=== PATIENT | male | born 1975 | race African-American/Black ===

== ENCOUNTER 2016-05-15 01:07 | Emergency (ER) | payer SELFPAY ==
[~2016-05-15] VITALS: Ht 180.3 cm; Wt 113.5 kg
[~2016-05-15 01:07] MED LIST: BACL10TA PO; DICL75 PO
[2016-05-15 01:10] VITALS: BP 126/79; PULSE 78; RESP 16; TEMP 98; O2SAT 98
[2016-05-15 01:34] VITALS: BP 130/79; PULSE 83; RESP 16; O2SAT 97
[2016-05-15] MEDS ORDERED: NAPR500 PO (02:19)
[2016-05-15] MEDS ORDERED: ZOFR4TAB3 SL (02:19)
[2016-05-15] MEDS ORDERED: CODE1SUS PO (02:19)
--- NOTE | 2016-05-15 02:19 | PD ---
HPI Chief Complaint: Cold / Flu Symptoms Time Seen by Provider: 02:08 Travel History International Travel<30 days: No Contact w/Intl Traveler<30days: No Traveled to known affect area: No History of Present Illness HPI 40-year-old male presents emergency department complaining of cough cold symptoms for the past 2 weeks. He states he hasn't felt well. He said myalgias. Chills but no definite fever. Today developed nausea vomiting and some diarrhea. He wasn't getting any better so he came to the emergency department. History Past Medical History Medical History: Denies Significant Hx Past Surgical History Surgical History: No Previous Surgery Social History Alcohol Use: No Tobacco Use: No Allergies-Medications (Allergen,Severity, Reaction): Coded Allergies: No Known Allergies (Unverified , 05/15/16) Reported Meds & Prescriptions Reported Meds & Active Scripts Active No Active Prescriptions or Reported Medications Review of Systems Except as stated in HPI: all other systems reviewed are Neg Physical Exam Narrative GENERAL: Well-appearing 40 year-old woman, no acute distress. SKIN: Warm and dry. NECK: Trachea midline. No JVD. CARDIOVASCULAR: Regular rate and rhythm. No murmur appreciated. RESPIRATORY: No accessory muscle use. Clear to auscultation. Breath sounds equal bilaterally. GASTROINTESTINAL: Abdomen soft, non-tender, nondistended. Hepatic and splenic margins not palpable. MUSCULOSKELETAL: No obvious deformities. No edema. NEUROLOGICAL: Awake and alert. No obvious cranial nerve deficits. Motor grossly within normal limits. Normal speech. Data Data Last Documented VS Vital Signs Date Time Temp Pulse Resp B/P Pulse Ox O2 Delivery O2 Flow Rate FiO2 05/15/16 01:34 83 16 130/79 97 Room Air 05/15/16 01:10 98.0 [facility] Medical Decision Making Medical Screen Exam Complete: Yes Emergency Medical Condition: Yes Differential Diagnosis URI, bronchitis, pharyngitis, sinusitis, other Narrative Course Medical decision making 40-year-old man presents emergent department about 2 weeks for the cough cold symptoms. Some nausea vomiting and diarrhea today. Looks well. Benign abdomen. Chief complaint is cough and sore throat. Is worried about his concert that he has coming up in one day. We'll recommend steroids, anti- inflammatories, Zofran as needed, cough suppressant as needed. Diagnosis Primary Impression: URI (upper respiratory infection) Additional Impression: Nausea vomiting and diarrhea Additional Instructions: Take Naprosyn as prescribed. Use Zofran if needed for nausea or vomiting. Take Robitussin-DM as needed for cough. Follow-up with your primary doctor in the next 2-4 days. Return to the emergency department for any new or worsening symptoms. Med/Other Pt SpecificInfo: Prescription(s) given Scripts Codeine-Chlorpheniramine ER Liq 12 HR (Tuzistra Xr Liq 12 HR)14.7-2.8 Mg/5 Ml Susp10 Ml PO Q12H #120 ML Ref 0 Prov:Omer Aiken MD 05/15/16 Naproxen (Naprosyn)500 Mg [id number] Mg PO BID PRN (PAIN SCALE 1 TO 10) #20 TAB Prov:Omer Aiken MD 05/15/16 Ondansetron Odt (Zofran Odt)4 Mg Tab4 Mg SL Q8HR PRN (Nausea/Vomiting) #15 TAB May substitute non-ODT form. Prov:Omer Aiken MD 05/15/16 Disposition: 01 DISCHARGE HOME Condition: Stable Omer Aiken MD May 15, 2016 02:19
[2016-05-15] MEDS ORDERED: DEXAMETHASONE SOD PHOS 4 MG/ML VIAL IM ONE (02:30)
[2016-05-15 02:35] VITALS: BP 136/63; TEMP 98.9
== END 2016-05-15 02:57 | disposition home or self-care (01) ==
LOC: NEPE 01:07
DX: J06.9 Acute upper respiratory infection, unspecified (principal)
CPT/HCPCS: 96372; 99283; J1100

== ENCOUNTER 2016-08-25 07:03 | Emergency (ER) | payer SELFPAY ==
[~2016-08-25] VITALS: Ht 180.3 cm; Wt 113.4 kg
[~2016-08-25 07:03] MED LIST changes: -BACL10TA PO; +CODE1SUS PO; -DICL75 PO; +NAPR500 PO; +ZOFR4TAB3 SL
[2016-08-25 07:04] VITALS: BP 121/85; PULSE 80; RESP 15; TEMP 97.9; O2SAT 100
--- NOTE | 2016-08-25 07:31 | PD ---
HPI Chief Complaint: Pain: Acute or Chronic Time Seen by Provider: 07:16 Travel History International Travel<30 days: No Contact w/Intl Traveler<30days: No Traveled to known affect area: No History of Present Illness HPI 41-year-old male complains of bilateral leg pain. Patient states that he woke up this morning the pain to the lower extremity especially posterior aspect of both thighs. Patient denies any injury. Patient states that he has mild aching low back area. Patient denies any fever chills. Patient states that he has muscle spasm posterior bilateral thigh area this morning. 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 Patient denies any chest pain or shortness of breath. Patient denies abdominal pain. Patient denies any history of DVT or PE. Patient denies any history of back injury. On a scale of 1-10 the pain is a 9. PFSH Past Medical History Medical History: Denies Significant Hx Diminished Hearing: No Immunizations Current: Yes Tetanus Vaccination: < 5 Years Influenza Vaccination: No ?: Not Past Surgical History Surgical History: No Previous Surgery Social History Alcohol Use: No Tobacco Use: No Substance Use: No Allergies-Medications (Allergen,Severity, Reaction): Coded Allergies: No Known Allergies (Unverified , 08/25/16) Reported Meds & Prescriptions Reported Meds & Active Scripts Active Robaxin (Methocarbamol) 750 Mg Tab 750 Mg PO QID Mobic (Meloxicam) 15 Mg Tab 15 Mg PO DAILY Review of Systems General / Constitutional: No: Fever Eyes: No: Visual changes HENT: No: Headaches Cardiovascular: No: Chest Pain or Discomfort Respiratory: No: Shortness of Breath Gastrointestinal: No: Abdominal Pain Genitourinary: No: Dysuria Musculoskeletal: Positive: Pain Skin: No Rash Neurologic: No: Weakness Psychiatric: No: Depression Endocrine: No: Polydipsia Hematologic/Lymphatic: No: Easy Bruising Physical Exam Narrative GENERAL: Well-nourished, well-developed patient. SKIN: Focused skin assessment warm/dry. HEAD: Normocephalic. EYES: No scleral icterus. No injection or drainage. NECK: Supple, trachea midline. No JVD or lymphadenopathy. CARDIOVASCULAR: Regular rate and rhythm without murmurs, gallops, or rubs. RESPIRATORY: Breath sounds equal bilaterally. No accessory muscle use. GASTROINTESTINAL: Abdomen soft, non-tender, nondistended. MUSCULOSKELETAL: No cyanosis, or edema. Patient has moderate tenderness on palpation posterior aspect of both thighs area. Full range of motion lower extremity. Sensory motor vascular distally intact. BACK: Mild tenderness on palpation lower lumbar area, without obvious deformity. No CVA tenderness. Neurologic exam: Normal. Data Data Last Documented VS Vital Signs Date Time Temp Pulse Resp B/P Pulse Ox O2 Delivery O2 Flow Rate FiO2 08/25/16 07:04 97.9 80 15 121/85 100 Orders Basic Metabolic Panel (Bmp) (08/25/16 07:20) Us Leg Venous Doppler Bilat (08/25/16 07:20) Labs Laboratory Tests Test 08/25/16 07:31 Sodium Level 144 MEQ/L Potassium Level 3.6 MEQ/L Chloride Level 109 MEQ/L Carbon Dioxide Level 27.5 MEQ/L Anion Gap 8 MEQ/L Blood Urea Nitrogen 18 MG/DL Creatinine 1.20 MG/DL Estimat Glomerular Filtration 80 ML/MIN Rate Random Glucose 149 MG/DL Calcium Level 8.7 MG/DL [facility] Medical Decision Making Medical Screen Exam Complete: Yes Emergency Medical Condition: Yes Interpretation(s) 8:16 AM. Doppler study lower extremity negative for acute pathology. Negative for DVT. BMP within normal limit. Random glucose 149. Differential Diagnosis Differential diagnosis including strain, muscular spasm, DVT, spinal abscess. Narrative Course 41-year-old male with mild low back pain, lower extremity pain. Diagnosis Primary Impression: Muscle spasm Patient Instructions: General Instructions Additional Instructions: Take medications as needed. Follow-up with personal physician and orthopedist if persistent problem. Return if worse. Off work today. Med/Other Pt SpecificInfo: Prescription(s) given Scripts Methocarbamol (Robaxin)750 Mg Iho863 Mg PO QID #40 TAB Prov:Michael Cole MD 08/25/16 Meloxicam (Mobic)15 Mg Tab15 Mg PO DAILY #20 TAB Prov:Michael Cole MD 08/25/16 Disposition: 01 DISCHARGE HOME Condition: Stable Michael Cole MD August 25, 2016 07:31 Michael Cole MD August 25, 2016 07:31
[2016-08-25 07:44] LABS: POTASSIUM 3.6 MEQ/L (3.5-5.1)
[2016-08-25 07:47] LABS: BICARBONATE 27.5 MEQ/L (21.0-32.0)
[2016-08-25] MEDS ORDERED: ROBA750T PO (08:19)
[2016-08-25] MEDS ORDERED: MOBI15TA PO (08:19)
--- NOTE | 2016-08-25 08:37 | RADHPO ---
EXAM DATE/TIME: 08/25/2016 07:50 [facility] COMPARISON: No previous studies available for comparison. INDICATIONS : Bilateral leg pain. MEDICAL HISTORY : Bilateral leg pain. SURGICAL HISTORY : None. ENCOUNTER: Initial ACUITY: 1 day PAIN SCORE: 0/10 LOCATION: Bilateral leg. TECHNIQUE: Venous ultrasound of the left and right leg was performed from the inguinal ligament t o the proximal calf. Real-time, color Doppler and spectral tracing, compression and augmentation luz marina hniques were used. FINDINGS: RIGHT LEG: There is normal compressibility of the deep venous system from the inguinal region to the proximal calf. No echogenic clot is seen in the lumen of the common femoral, femoral, popliteal, and posterior tibial veins. There is a normal response of the venous system to proximal and distal augmentation and respiration. LEFT LEG: There is normal compressibility of the deep venous system from the inguinal region to t he proximal calf. No echogenic clot is seen in the lumen of the common femoral, femoral, popliteal, and posterior tibial veins. There is a normal response of the venous system to proximal and distal a ugmentation and respiration. CONCLUSION: No DVT in either lower extremity Jaime Kitchen MD on August 25, 2016 at 8:35 Board Certified Radiologist. This report was verified electronically.
== END 2016-08-25 08:37 | disposition home or self-care (01) ==
LOC: PHED 07:03
DX: M62.838 Other muscle spasm (principal); M79.605 Pain in left leg; M79.604 Pain in right leg
CPT/HCPCS: 80048; 93970; 99284

== ENCOUNTER 2017-02-08 08:42 | Emergency (ER) | payer SELFPAY ==
[~2017-02-08] VITALS: Ht 180.3 cm; Wt 110.0 kg
[~2017-02-08 08:42] MED LIST changes: -CODE1SUS PO; +MOBI15TA PO; -NAPR500 PO; +ROBA750T PO; -ZOFR4TAB3 SL
[2017-02-08 08:44] VITALS: BP 130/74; PULSE 78; RESP 16; TEMP 98.7; O2SAT 98
[2017-02-08 10:45] VITALS: BP 130/75; PULSE 76; RESP 16; O2SAT 99
[2017-02-08] MEDS ORDERED: KETOROLAC TROMETHAMINE 60 MG/2 ML (IM) VIAL IM ONE (11:00)
[2017-02-08] MEDS ORDERED: ORPHENADRINE INJ 60 MG/2 ML AMP IM ONE (11:00)
--- NOTE | 2017-02-08 11:02 | PD ---
HPI Chief Complaint: Back/ Neck Pain or Injury Time Seen by Provider: 10:59 Travel History International Travel<30 days: No Contact w/Intl Traveler<30days: No Traveled to known affect area: No History of Present Illness HPI This is a 41-year-old male who presents for evaluation of lower back pain. The patient reports that yesterday at work when he slipped on an oily floor and twisted his lower back. Since then he has had lower back pain which is achy, constant, worse when walking or moving. He has not tried using any medication for symptom relief. He was seen at [facility] yesterday and given a return to work instructions with light duty however because the pain is worse today he comes in here for further evaluation. He denies any bowel or bladder incontinence, saddle anesthesia, weakness, radicular symptoms. He has no other complaints. PENDING SALE TO [facility] Past Medical History Medical History: Denies Significant Hx Diminished Hearing: No Immunizations Current: Yes Tetanus Vaccination: Unknown Past Surgical History Surgical History: No Previous Surgery Social History Alcohol Use: No Tobacco Use: No Substance Use: No Allergies-Medications (Allergen,Severity, Reaction): Coded Allergies: No Known Allergies (Unverified Adverse Reaction, Unknown, 02/08/17) Reported Meds & Prescriptions Reported Meds & Active Scripts Active Ibuprofen 800 Mg Tab 800 Mg PO Q6HR PRN Robaxin (Methocarbamol) 750 Mg Tab 750 Mg PO QID Mobic (Meloxicam) 15 Mg Tab 15 Mg PO DAILY Review of Systems Except as stated in HPI: all other systems reviewed are Neg Physical Exam Narrative GENERAL: Well-developed well-nourished male in no acute distress SKIN: Warm and dry. HEAD: Atraumatic. Normocephalic. EYES: Pupils equal and round. No scleral icterus. No injection or drainage. ENT: No nasal bleeding or discharge. Mucous membranes pink and moist. NECK: Trachea midline. No JVD. CARDIOVASCULAR: Regular rate and rhythm. No murmur appreciated. RESPIRATORY: No accessory muscle use. Clear to auscultation. Breath sounds equal bilaterally. GASTROINTESTINAL: Abdomen soft, non-tender, nondistended. Hepatic and splenic margins not palpable. MUSCULOSKELETAL: No obvious deformities. There is some tenderness to palpation along the lumbar midline spine and right lumbar paravertebral musculature. The patient and his father 5 muscle strength in lower extremities. He has pain with flexion, extension and rotation of the spine. NEUROLOGICAL: Awake and alert. No obvious cranial nerve deficits. Motor grossly within normal limits. Normal speech. Data Data Last Documented VS Vital Signs Date Time Temp Pulse Resp B/P (MAP) Pulse Ox O2 Delivery O2 Flow Rate FiO2 02/08/17 10:45 76 16 130/75 (93) 99 Room Air 02/08/17 08:44 98.7 Orders Orders Ketorolac Inj (Toradol Inj) (02/08/17 11:00) Orphenadrine Inj (Norflex Inj) (02/08/17 11:00) Spine, Lumbar - Ltd (Ap & Lat) (02/08/17 ) [facility] Medical Decision Making Medical Screen Exam Complete: Yes Emergency Medical Condition: Yes Medical Record Reviewed: Yes Differential Diagnosis Lumbar strain, spasm, spondylolisthesis, spinal stenosis Narrative Course The patient has some lumbar midline tenderness. An x-ray of the lumbar spine was ordered revealing no acute abnormalities. His symptoms and history are consistent with lumbar strain. The patient will be treated with a short course of NSAIDs. He was given a prescription for muscle relaxant by urgent care yesterday but he has not yet filled it. He is encouraged to fill the prescription. Diagnosis Primary Impression: Lumbar strain Qualified Codes: S39.012A - Strain of muscle, fascia and tendon of lower back , initial encounter Additional Instructions: Medication as needed. Avoid strenuous activity, heavy lifting. Follow-up with primary care in 2 weeks. Return for any emergent medical conditions. Med/Other Pt SpecificInfo: Prescription(s) given Scripts Ibuprofen (Ibuprofen) 800 Mg Tab 800 MG PO Q6HR Y for PAIN, #40 TAB 0 Refills Prov: Bernabe Burgess MD 02/08/17 Disposition: 01 DISCHARGE HOME Condition: Stable Phillip Savage Feb 08, 2017 11:02
[2017-02-08] MEDS ORDERED: IBUP1TAB7 PO (11:03)
--- NOTE | 2017-02-08 11:54 | RADRPT ---
EXAM DATE/TIME: 02/08/2017 11:12 [facility] COMPARISON: No previous studies available for comparison. INDICATIONS : Slipped and twisted low back yesterday, painful mid lumbar spine radiating into right hip and leg. MEDICAL HISTORY : None. SURGICAL HISTORY : None. ENCOUNTER: Initial ACUITY: 2 days PAIN SCORE: 10/10 LOCATION: Right lumbar spine FINDINGS: Three views of the lumbar spine demonstrate five [id number] lumbar vertebral bodies. No fracture or compression deformity is present. There is no anterolisthesis or retrolisthesis. There is mild de creased disc height at L5-S1. The visualized paraspinous soft tissues and pelvic bones demonstrate no acute abnormality. CONCLUSION: No acute lumbar spine abnormality is identified. There is mild decreased disc height at L5-S1. Wilder Godwin MD on February 08, 2017 at 11:51 Board Certified Radiologist. This report was verified electronically.
[2017-02-08 12:21] VITALS: BP 132/76
== END 2017-02-08 12:25 | disposition home or self-care (01) ==
LOC: NEPD 08:42
DX: S39.012A Strain of muscle, fascia and tendon of lower back, initial encounter (principal); W01.0XXA Fall on same level from slipping, tripping and stumbling without subsequent striking against object, initial encounter; Z79.899 Other long term (current) drug therapy
CPT/HCPCS: 72100; 99283

== ENCOUNTER 2017-02-12 21:34 | Emergency (ER) | payer OTHER ==
[~2017-02-12] VITALS: Ht 180.3 cm; Wt 109.0 kg
[~2017-02-12 21:34] MED LIST changes: +IBUP1TAB7 PO
[2017-02-12 21:46] VITALS: BP 142/95; PULSE 73; RESP 16; TEMP 97.7; O2SAT 96
[2017-02-12] MEDS ORDERED: CYCL5TAB PO (22:08)
[2017-02-12] MEDS ORDERED: PRED5TAB PO (22:08)
[2017-02-12] MEDS ORDERED: TRAM50TA PO (22:08)
--- NOTE | 2017-02-12 22:22 | PD ---
HPI Chief Complaint: Back/ Neck Pain or Injury Time Seen by Provider: 22:15 Travel History International Travel<30 days: No Contact w/Intl Traveler<30days: No Traveled to known affect area: No History of Present Illness HPI Patient comes back to the emergency Department complaining of continued low back pain. Patient states that he quit taking medication prescribed to him by [facility] of tramadol, steroids, and muscle relaxer on Tuesday as he felt the medication was not helping. Patient states that he went to get something to eat today and when he came back to his apartment he was walking up some stairs when he felt the pain get worse. Pain sharp stabbing his right low back radiating down his right lower extremity. Patient denies any trauma. States the pain began when he slipped at work and twisted his back. Denies any fevers , loss or change in bowel or bladder, numbness or tingling anywhere, abdominal pain, or IV drug use. PFSH Past Medical History Medical History: Denies Significant Hx Diminished Hearing: No Immunizations Current: Yes Tetanus Vaccination: < 5 Years Past Surgical History Surgical History: No Previous Surgery Social History Alcohol Use: No Tobacco Use: No Substance Use: No Allergies-Medications (Allergen,Severity, Reaction): Coded Allergies: No Known Allergies (Unverified Adverse Reaction, Unknown, 02/12/17) Reported Meds & Prescriptions Reported Meds & Active Scripts Active Reported Tramadol (Tramadol HCl) 50 Mg Tab 50 Mg PO Q4H PRN Flexeril (Cyclobenzaprine HCl) 5 Mg Tab 5 Mg PO TID Prednisone 5 Mg Tab 5 Mg PO DAILY Review of Systems Except as stated in HPI: all other systems reviewed are Neg Physical Exam Narrative GENERAL: Well-developed, overly nourished, in no acute distress, and non-ill appearing. SKIN: Focused skin assessment warm and dry. HEAD: Atraumatic. Normocephalic. EYES: Pupils equal and round. EOMI. No scleral icterus. No injection or drainage. ENT: No nasal bleeding or discharge. Mucous membranes pink and moist. NECK: Trachea midline. Supple. No nuclear rigidity. RESPIRATORY: No accessory muscle use. No respiratory distress. MUSCULOSKELETAL: No obvious deformities. No clubbing. No cyanosis. No edema. Full range of motion. No tenderness crepitus or midline lumbar spine. Patient reports tenderness to palpation the right SI joint. Straight leg test positive on right. NEUROLOGICAL: Awake and alert. No obvious cranial nerve deficits. Motor grossly within normal limits. Normal speech. PSYCHIATRIC: Appropriate mood and affect; insight and judgment normal. Data Data Last Documented VS Vital Signs Date Time Temp Pulse Resp B/P (MAP) Pulse Ox O2 Delivery O2 Flow Rate FiO2 02/12/17 23:14 02/12/17 21:46 97.7 73 16 96 Room Air Orders Orders Dexamethasone Inj (Decadron Inj) (02/12/17 22:30) Orphenadrine Inj (Norflex Inj) (02/12/17 22:30) Acetamin-Hydrocod 325-5 Mg ([place] 5-325 (02/12/17 22:30) Ed Discharge Order (02/12/17 22:43) [facility] Medical Decision Making Medical Screen Exam Complete: Yes Emergency Medical Condition: Yes Differential Diagnosis Fracture, strain, contusion, sciatica, spasm, other Narrative Course The patient presented complaining of back pain with radiation down leg. There was no history of trauma. There was no evidence to support genitourinary etiology. There is also no evidence to suggest vascular pathology such as AAA dissection. No fevers or other evidence to suspect infectious processes, abscess , osteomyelitis etc. The patients neurological exam is normal with normal motor and sensory. There is no saddle paresthesias reported and no bowel or bladder incontinence or retention. I suspect the pain is mechanical in nature with sciatica. Clinical suspicion, plan of care and management was discussed with the patient. The patient was instructed to follow up with their health care provider. The patient was also instructed to return if the pain worsened, changed, or developed weakness or bowel or bladder trouble. The patient agreed with plan. Patient in no obvious distress upon re-evaluation. Any questions/concerns in reference to patient diagnosis/condition discussed and clarified prior to patient's discharge. Reinforced sheer importance of close follow up with patient 's primary physician or primary care clinic. Instructed patient to return to ED immediately, if symptoms return/worsen. Patient showed understanding of above instructions. Further instructions and recommendations were detailed in discharge paperwork. Patient ambulated without difficulty out of ED at discharge. Diagnosis Primary Impression: Low back pain Qualified Codes: M54.41 - Lumbago with sciatica, right side Patient Instructions: Back Pain (ED), General Instructions, Lower Back Exercises (GEN), Sciatica (ED) Additional Instructions: Follow-up with your Workmen's Comp. provider this week for reevaluation. Take all medication as previously prescribed. Return to the emergency department if symptoms get worse. Disposition: 01 DISCHARGE HOME Condition: Travis Koo Feb 12, 2017 22:22
[2017-02-12] MEDS ORDERED: ORPHENADRINE INJ 60 MG/2 ML AMP IM ONE (22:30)
[2017-02-12] MEDS ORDERED: DEXAMETHASONE SOD PHOS 20 MG/5 ML VIAL IM ONE (22:30)
[2017-02-12] MEDS ORDERED: ACETAMINOPHEN/HYDROcodone 325 MG/5 MG TAB PO ONE (22:30)
[2017-03-03] MEDS ORDERED: HYDR-3516 PO (09:36)
[2017-03-03] MEDS ORDERED: GABA300C5 PO (09:36)
[2017-03-03] MEDS ORDERED: TIZA4CAP3 PO (09:36)
[2017-03-04] MEDS ORDERED: HYDR-3516 PO (11:19)
== END 2017-02-13 00:06 | disposition home or self-care (01) ==
LOC: NEPD 21:34
DX: M54.5 Low back pain (principal); W01.0XXA Fall on same level from slipping, tripping and stumbling without subsequent striking against object, initial encounter; Y99.0 Civilian activity done for income or pay; Z79.899 Other long term (current) drug therapy
CPT/HCPCS: 96372; 99284; J1100; J2360

== ENCOUNTER → 2017-03-03 | Outpatient (CLI) | payer OTHER ==
[~2017-03-03] MED LIST changes: +CYCL5TAB PO; +GABA300C5 PO; +HYDR-3516 PO; +PRED5TAB PO; +TIZA4CAP3 PO; +TRAM50TA PO
[2017-03-03 10:59] LABS: APTT (PATIENT) 26.3 SEC (24.3-30.1); PROTHROMBIN TIME - PATIENT 9.9 SEC (9.8-11.6)
[2017-03-03 11:08] LABS: AUTOMATED NEUTROPHIL # 2.8 TH/MM3 (1.8-7.7); BASOPHIL % 0.7 % (0.0-2.0); EOSINOPHIL # 0.2 TH/MM3 (0-0.4); EOSINOPHIL % 3.9 % (0.0-4.0); HEMATOCRIT 43.3 % (39.0-51.0); HEMO FLAGS DIFF FINAL; LYMPH % 39.5 % (9.0-44.0); LYMPHOCYTE # 2.4 TH/MM3 (1.0-4.8); MEAN CELL VOLUME 81.7 FL (80.0-100.0); MEAN CORPUSCULAR HEMOGLOBIN 26.8 PG (27.0-34.0); MEAN CORPUSCULAR HGB CONC 32.7 % (32.0-36.0); NEUT % 45.9 % (16.0-70.0); PLATELET COUNT 260 TH/MM3 (150-450); RED CELL DISTRIBUTION WIDTH 14.3 % (11.6-17.2); WHITE BLOOD COUNT 6.2 TH/MM3 (4.0-11.0)
[2017-03-03 11:22] LABS: BICARBONATE 28.3 MEQ/L (21.0-32.0); POTASSIUM 4.5 MEQ/L (3.5-5.1)
--- NOTE | 2017-03-04 16:04 | EKG ---
Date Performed: 03/03/2017 Time Performed: 09:29:37 PTAGE: 41 years EKG: Sinus rhythm NORMAL ECG NO PREVIOUS TRACING DOCTOR: Katie Lucas Interpretating Date/Time 03/04/2017 16:04:37
== END ==
LOC: CPRE 09:09
PROVIDERS: ATTEND Orthopaedic Surgery Orthopaedic Surgery of the Spine
DX: Z01.812 Encounter for preprocedural laboratory examination (principal); Z01.810 Encounter for preprocedural cardiovascular examination; M51.16 Intervertebral disc disorders with radiculopathy, lumbar region
CPT/HCPCS: 36415; 80048; 85025; 85610; 85730; 93005

== ENCOUNTER → 2017-03-04 | Day surgery (SDC) | payer OTHER ==
[~2017-03-04] VITALS: Ht 180.3 cm; Wt 114.1 kg
[~2017-03-04] MED LIST changes: +ACETAMINOPHEN 1000 MG/100 ML 100 ML IV ONE; +ACETAMINOPHEN/HYDROcodone 325 MG/5 MG TAB PO PRN; +BETAMETHASONE SOD PHOS/ACETATE SUSP 30 MG/5 ML VIAL ONE; +BUPIVACAINE/EPINEPHRINE 0.25% PF 30 ML VIAL ONE; +CHLORHEXIDINE GLUCONATE 2 % 1 PACK (2 CLOTHS) TOPICAL PRN; +DEXAMETHASONE SOD PHOS 4 MG/ML VIAL IV ONE; +DO NOT ADM ANY ANTICOAGULANT DRUGS PRN; +GELATIN 12 MM/7 MM FOAM ONE; +GENTAMICIN SULFATE 80 MG/2 ML VIAL ONE; +GLYCOPYRROLATE 1 MG/5 ML SYRINGE IV PUSH ONE; -IBUP1TAB7 PO; +INSULIN HUMAN REGULAR 1,000 UNITS/10 ML VIAL SQ PRN; +KETOROLAC TROMETHAMINE 30 MG/ML (IVP) VIAL IV PUSH ONE; +LACTATED RINGER'S 1000 ML INJ 1,000 ML IV ONE; +LACTATED RINGER'S 1000 ML IV PRN; +LIDOCAINE HCL 1% PF 5 ML SYRINGE OTHER ONE; +METOPROLOL TARTRATE 25 MG TAB PO PRN; +MIDAZOLAM HCL 2 MG/2 ML VIAL IV ONE; -MOBI15TA PO; +MORPHINE SULFATE 4 MG/ML INJ IV PUSH PRN; +NEOSTIGMINE 3 MG/3 ML SYR IV ONE; +ONDANSETRON HCL 4 MG/2 ML VIAL IV PUSH ONE; +ONDANSETRON HCL 4 MG/2 ML VIAL IV PUSH PRN; +PHENYLEPH/NS 1000 MCG/10 ML SYR IV ONE; +POVIDONE IODINE 5% (ANTISEPSIS KIT) 4 APPLICATIONS EACH NARE PRN; +POVIDONE IODINE 7.5% SCRUB 118 ML BOTTLE TOPICAL SCH; +Post-op Orders (for Pharmacy) MISC XX ONE; -ROBA750T PO; +ROCURONIUM INJ 50 MG/5 ML SYRINGE IV PUSH ONE; +SODIUM CHLORID 0.9% 500 ML IV PRN; +SODIUM CHLORIDE 0.9% FLUSH 10 ML FLUSH IV FLUSH PRN; +SODIUM CHLORIDE 0.9% FLUSH 10 ML FLUSH IV FLUSH SCH; +ceFAZolin 2 GM PREMIX 50 ML IV SCH; +ePHEDrine/NS 25 MG/5 ML SYR IV ONE
--- NOTE | 2017-03-04 11:21 | HHI.PR ---
cc: Joelle Godinez MD Immediate Post Op Note Procedure Date: Mar 04, 2017 Pre Op Diagnosis: L5-S1 right paracentral disc herniation Post Op Diagnosis: same Surgeon: Joelle Godinez Manager Support Services(s): none Procedure: L5-S1 paracentral disc herniation Complications: none Specimen(s) removed: none Estimated blood loss: 50mL Anesthesia: General Drains: None Patient to: PACU Patient Condition: Good Date/Time of Procedure: SEE SURGICAL CARE RECORD Joelle Godinez MD Mar 04, 2017 11:21
--- NOTE | 2017-03-04 11:44 | RADRPT ---
EXAM DATE/TIME: 03/04/2017 08:44 [facility] COMPARISON: No previous studies available for comparison. INDICATIONS : L5-S1 lumbar laminectomy. Level localization. MEDICAL HISTORY : None. SURGICAL HISTORY : None. ENCOUNTER: Subsequent ACUITY: 1 day PAIN SCORE: Non-responsive. LOCATION: Lumbar spine. FINDINGS: A single lateral view of the lumbar spine shows a dorsal skin retractor with metallic probe projectin g towards the posterior elements at the L5-S1 level. There is disc space narrowing at L5-S1. CONCLUSION: Limited image as detailed above. Hilario Young Jr., MD on March 04, 2017 at 11:41 Board Certified Radiologist. This report was verified electronically.
--- NOTE | 2017-03-04 12:16 | RADRPT ---
EXAM DATE/TIME: 03/04/2017 08:44 [facility] COMPARISON: No previous studies available for comparison. INDICATIONS : L5-S1 lumbar laminectomy. Level localization. MEDICAL HISTORY : None. SURGICAL HISTORY : None. ENCOUNTER: Subsequent ACUITY: 1 day PAIN SCORE: Non-responsive. LOCATION: Lumbar spine. FINDINGS: Metallic probes are at L5 pedicle and S1 pedicle. CONCLUSION: Metallic probes as above. Sharif Elder MD FACR on March 04, 2017 at 12:13 Board Certified Radiologist. This report was verified electronically.
[2017-03-04 13:06] VITALS: BP 141/86; PULSE 93; RESP 20; TEMP 97.3; O2SAT 96
--- NOTE | 2017-03-11 11:47 | PD.OP ---
cc: Joelle Godinez MD Operative Report Right L5-S1 paracentral disc herniation with radiculopathy Postoperative Diagnosis: Same Procedure: Right L5-S1 hemilaminectomy with discectomy Surgeon: Joelle Godinez Health Worker(s): None Operation and Findings: Anesthesia: Gen. 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 Patient was found to have an L5-S1 right-sided paracentral disc herniation with radiculopathy. Patient had attempted nonoperative management for approximately 3 weeks with anti-inflammatories and activity modification. Patient had persistent right lower extremity weakness and pain. Options of management were discussed with the patient with continued nonoperative care versus operative intervention in the form of a right-sided hemilaminectomy at L5 -S1 with discectomy. Given the patient's weakness, he was interested in pursuing surgical intervention. Risks of surgery were discussed with the patient including but not limited to: Infection, persistent or worsening symptoms, nerve injury leading to weakness and or paralysis, spinal fluid leak, recurrent disc herniation, persistent back pain, adjacent segment disease or instability, possible need for further surgery, and other unforeseen complications were all discussed with the patient. He did consent to the above- mentioned procedure. Description of procedure: The patient was brought back to the operating room. Gen. anesthesia then ensued. The patient was then placed prone on the operating room table with all bony prominences well-padded. The patient was prepped and draped in standard sterile fashion. A timeout was performed to identify the correct patient, location, and procedure to be performed. Preoperative antibiotics were given prior to incision. The level was identified with fluoroscopy and a central midline incision was made through the skin and subcutaneous tissue. The paraspinals were elevated off the right lamina and deep retractors placed. The interlaminar space at L5- S1 was identified and verified with fluoroscopy. A right-sided hemilaminectomy was performed with the use of a high-speed bur and Kerrisons. The ligamentum was then removed to allow access to the thecal sac and nerve roots. The S1 nerve root was identified and mobilized. This allowed access to a large disc herniation at L5-S1. An annulotomy was performed followed by discectomy with pituitaries. The disc space was irrigated to ensure there were no free fragments. The S1 nerve root on the right appeared to be free of any compression but did appear significantly inflamed. Once I was satisfied with the decompression, the wound was irrigated. Hemostasis was achieved with the use of bipolar electrocautery and thrombostatic agent. A small piece of Gelfoam soaked in Celestone was placed on the exposed right S1 nerve root. The fascia was then closed with deep #1 Vicryl. The subcutaneous tissue was closed with 3-0 Vicryl and the skin closed with Monocryl and Steri-Strips. A sterile dressing was placed. Patient was then placed back onto stretcher and awoken from general anesthesia without complication. It should be noted the patient remained hemodynamically stable throughout the procedure. Disposition: Patient will be mobilized today. Patient was instructed to avoid bending, lifting greater than 10 pounds, and twisting. Joelle Godinez MD Mar 11, 2017 11:47
== END | disposition home or self-care (01) ==
LOC: HSDC 05:59
PROVIDERS: ATTEND Orthopaedic Surgery Orthopaedic Surgery of the Spine
DX: M51.16 Intervertebral disc disorders with radiculopathy, lumbar region (principal); Z01.812 Encounter for preprocedural laboratory examination
CPT/HCPCS: 00630; 63030; 72020; 76000; J0131; J0690; J0702; J1100; J1580; J1885; J2250; J2370; J2405; J2710; J3010; J7120

== ENCOUNTER 2017-04-30 12:15 | Emergency (ER) | payer OTHER ==
[~2017-04-30] VITALS: Ht 182.9 cm; Wt 113.5 kg
[~2017-04-30 12:15] MED LIST changes: -ACETAMINOPHEN 1000 MG/100 ML 100 ML IV ONE; -ACETAMINOPHEN/HYDROcodone 325 MG/5 MG TAB PO PRN; -BETAMETHASONE SOD PHOS/ACETATE SUSP 30 MG/5 ML VIAL ONE; -BUPIVACAINE/EPINEPHRINE 0.25% PF 30 ML VIAL ONE; -CHLORHEXIDINE GLUCONATE 2 % 1 PACK (2 CLOTHS) TOPICAL PRN; -DEXAMETHASONE SOD PHOS 4 MG/ML VIAL IV ONE; -DO NOT ADM ANY ANTICOAGULANT DRUGS PRN; -GELATIN 12 MM/7 MM FOAM ONE; -GENTAMICIN SULFATE 80 MG/2 ML VIAL ONE; -GLYCOPYRROLATE 1 MG/5 ML SYRINGE IV PUSH ONE; -INSULIN HUMAN REGULAR 1,000 UNITS/10 ML VIAL SQ PRN; -KETOROLAC TROMETHAMINE 30 MG/ML (IVP) VIAL IV PUSH ONE; -LACTATED RINGER'S 1000 ML INJ 1,000 ML IV ONE; -LACTATED RINGER'S 1000 ML IV PRN; -LIDOCAINE HCL 1% PF 5 ML SYRINGE OTHER ONE; -METOPROLOL TARTRATE 25 MG TAB PO PRN; -MIDAZOLAM HCL 2 MG/2 ML VIAL IV ONE; -MORPHINE SULFATE 4 MG/ML INJ IV PUSH PRN; -NEOSTIGMINE 3 MG/3 ML SYR IV ONE; -ONDANSETRON HCL 4 MG/2 ML VIAL IV PUSH ONE; -ONDANSETRON HCL 4 MG/2 ML VIAL IV PUSH PRN; -PHENYLEPH/NS 1000 MCG/10 ML SYR IV ONE; -POVIDONE IODINE 5% (ANTISEPSIS KIT) 4 APPLICATIONS EACH NARE PRN; -POVIDONE IODINE 7.5% SCRUB 118 ML BOTTLE TOPICAL SCH; -Post-op Orders (for Pharmacy) MISC XX ONE; -ROCURONIUM INJ 50 MG/5 ML SYRINGE IV PUSH ONE; -SODIUM CHLORID 0.9% 500 ML IV PRN; -SODIUM CHLORIDE 0.9% FLUSH 10 ML FLUSH IV FLUSH PRN; -SODIUM CHLORIDE 0.9% FLUSH 10 ML FLUSH IV FLUSH SCH; -ceFAZolin 2 GM PREMIX 50 ML IV SCH; -ePHEDrine/NS 25 MG/5 ML SYR IV ONE
[2017-04-30] MEDS ORDERED: GADODIAMIDE PF 287 MG/ML 20 ML VIAL (for RAD MRI) IVCONTRAST ONE (12:16)
[2017-04-30 12:23] VITALS: BP 124/94; PULSE 88; RESP 16; TEMP 98.5; O2SAT 99
--- NOTE | 2017-04-30 12:42 | PD ---
HPI Chief Complaint: Pain: Acute or Chronic Time Seen by Provider: 12:41 Travel History International Travel<30 days: No Contact w/Intl Traveler<30days: No Traveled to known affect area: No History of Present Illness HPI 41-year-old Afro-[place] male presents to emergency department with ongoing and worsening right-sided lumbar pain with radicular pain and weakness in the right leg. Patient reportedly had a discectomy and fusion of L4 [address] Godinez on summer. Patient states after the procedure his back pain was gone, but he continued to have right-sided radicular symptoms. He states over the past 3 days she's had increased right lower back pain and worsening right leg radicular pain and occasional weakness. He states his leg went out on him last evening causing him to fall into his bed. Patient denies bowel or bladder problems. He does state numbness on the base of his foot and great toe. He is currently walking with crutches. Patient has been taking Lortab occasionally for pain. States it does not seem to help at all. He is currently not on nonsteroidals, prednisone, or muscle relaxants. He states he is supposed to have him follow with Dr. Godinez on 18 May. He states he called her office yesterday and asked them to move up the appointment. He then had his fall and worsening pain last evening. Patient states no signs of infection to the incision site. Pain is currently 9 out 10. He has no known drug allergies. PFSH Past Medical History Cancer: No Cardiovascular Problems: No Diabetes: No Diminished Hearing: No Endocrine: No Genitourinary: No Hepatitis: No Hiatal Hernia: No Hypertension: No Immune Disorder: No Musculoskeletal: Yes (pain down r leg with weakness) Neurologic: No Psychiatric: No Reproductive: No Respiratory: No Immunizations Current: Yes Thyroid Disease: No Past Surgical History Abdominal Surgery: No AICD: No Cardiac Surgery: No Ear Surgery: No Endocrine Surgery: No Eye Surgery: No Genitourinary Surgery: No Gynecologic Surgery: No Joint Replacement: No Oral Surgery: No Pacemaker: No Thoracic Surgery: No Social History Alcohol Use: No Tobacco Use: No Substance Use: No Allergies-Medications (Allergen,Severity, Reaction): Coded Allergies: No Known Allergies (Unverified Adverse Reaction, Unknown, 03/04/17) Reported Meds & Prescriptions Reported Meds & Active Scripts Active Percocet (Oxycodone-Acetaminophen) 5-325 mg Tab 1 Tab PO Q4H PRN Prednisone 20 Mg Tab 40 Mg PO DAILY Take 40 mg (2 tablets) daily for 5 days Reported Gabapentin 300 Mg Cap 300 Mg PO TID Tramadol (Tramadol HCl) 50 Mg Tab 50 Mg PO Q4H PRN Prednisone 5 Mg Tab 5 Mg PO DAILY Review of Systems Except as stated in HPI: all other systems reviewed are Neg General / Constitutional: No: Fever, Chills Eyes: No: Visual changes HENT: No: Headaches Cardiovascular: No: Chest Pain or Discomfort Respiratory: No: Shortness of Breath Gastrointestinal: No: Abdominal Pain Genitourinary: No: Dysuria Musculoskeletal: Positive: Myalgias, Arthralgias, Limited ROM, Pain Skin: No Rash Neurologic: Positive: Weakness (in right lower leg. See history present illness), Other (right radicular pain.) Psychiatric: No: Depression Endocrine: No: Polydipsia Hematologic/Lymphatic: No: Easy Bruising Physical Exam Narrative GENERAL: Patient appears in moderate distress. SKIN: Warm. Normal color. Moderate diaphoresis. Incision site appears well- healed without signs of dehiscence or cellulitis. No local swelling at that area. HEAD: Atraumatic. Normocephalic. EYES: Pupils equal and round. No scleral icterus. No injection or drainage. ENT: No nasal bleeding or discharge. Mucous membranes pink and moist. Pharynx clear. Airway is patent. NECK: Trachea midline. Supple nontender. CARDIOVASCULAR: Regular rate and rhythm. RESPIRATORY: No accessory muscle use. Clear to auscultation. Breath sounds equal bilaterally. GASTROINTESTINAL: Abdomen soft, non-tender, nondistended. Hepatic and splenic margins not palpable. MUSCULOSKELETAL: Extremities without clubbing, cyanosis, or edema. No obvious deformities. Patient has positive straight leg raise pain on the right at 20. Patient has decreased dorsi and plantar flexion. Patient states numbness along the base of the great toe and inner arch of the right foot. Exam is limited secondary to patient's pain. NEUROLOGICAL: Awake and alert. No obvious cranial nerve deficits. Motor grossly within normal limits.. Normal speech. PSYCHIATRIC: Appropriate mood and affect; insight and judgment normal. Data Data Last Documented VS Vital Signs Date Time Temp Pulse Resp B/P (MAP) Pulse Ox O2 Delivery O2 Flow Rate FiO2 04/30/17 13:10 78 115/75 (88) 04/30/17 12:23 98.5 16 99 Orders Orders Complete Blood Count With Diff (04/30/17 12:46) Comprehensive Metabolic Panel (04/30/17 12:46) Act Partial Throm Time (Ptt) (04/30/17 12:46) Iv Access Insert/Monitor (04/30/17 12:46) Ecg Monitoring (04/30/17 12:46) Oximetry (04/30/17 12:46) NPO (04/30/17 12:46) Ondansetron Inj (Zofran Inj) (04/30/17 13:00) Sodium Chlor 0.9% 1000 Ml Inj (Ns 1000 M (04/30/17 12:46) Sodium Chloride 0.9% Flush (Ns Flush) (04/30/17 13:00) Chest, Single Ap (04/30/17 12:46) Ketorolac Inj (Toradol Inj) (04/30/17 13:00) Morphine Inj (Morphine Inj) (04/30/17 13:00) Dexamethasone Inj (Decadron Inj) (04/30/17 13:00) Mri L Spine W&W/O Contrast (04/30/17 ) Gadodiamide Pf Inj (Omniscan Pf Inj) (04/30/17 12:16) Hydromorphone Pf Inj (Dilaudid Pf Inj) (04/30/17 16:15) Labs Laboratory Tests Test 04/30/17 12:55 White Blood Count 6.3 TH/MM3 Red Blood Count 5.49 MIL/MM3 Hemoglobin 14.7 GM/DL Hematocrit 44.4 % Mean Corpuscular Volume 80.8 FL Mean Corpuscular Hemoglobin 26.7 PG Mean Corpuscular Hemoglobin Concent 33.1 % Red Cell Distribution Width 14.2 % Platelet Count 307 TH/MM3 Mean Platelet Volume 7.8 FL Neutrophils (%) (Auto) 47.1 % Lymphocytes (%) (Auto) 40.6 % Monocytes (%) (Auto) 8.2 % Eosinophils (%) (Auto) 3.3 % Basophils (%) (Auto) 0.8 % Neutrophils # (Auto) 3.0 TH/MM3 Lymphocytes # (Auto) 2.6 TH/MM3 Monocytes # (Auto) 0.5 TH/MM3 Eosinophils # (Auto) 0.2 TH/MM3 Basophils # (Auto) 0.0 TH/MM3 CBC Comment DIFF FINAL Differential Comment Activated Partial Thromboplast Time 23.8 SEC Blood Urea Nitrogen 10 MG/DL Creatinine 1.07 MG/DL Random Glucose 107 MG/DL Total Protein 8.3 GM/DL Albumin 4.0 GM/DL Calcium Level 9.7 MG/DL Alkaline Phosphatase 110 U/L Aspartate Amino Transf (AST/SGOT) 20 U/L Alanine Aminotransferase (ALT/SGPT) 25 U/L Total Bilirubin 0.6 MG/DL Sodium Level 138 MEQ/L Potassium Level 3.8 MEQ/L Chloride Level 105 MEQ/L Carbon Dioxide Level 26.6 MEQ/L Anion Gap 6 MEQ/L Estimat Glomerular Filtration Rate 91 ML/MIN [facility] Medical Decision Making Medical Screen Exam Complete: Yes Emergency Medical Condition: Yes Medical Record Reviewed: Yes Differential Diagnosis Right-sided sciatica. Radiculopathy. Right leg numbness. Low back pain. Status post discectomy. Narrative Course Patient is medically stable although in pain at time of exam. Laboratory includes CBC, CMP, coagulation studies, and urinalysis. IV access is obtained patient is given 10 mg Decadron IV, 30 mg Toradol IV, and 2 mg morphine IV as well as 4 mg Zofran IV. Chest x-ray is ordered as well as MRI of the lumbar spine with and without contrast. CBC is unremarkable. Coagulation studies show a PTT of 23.8. Chemistries were unremarkable. Chest x-ray shows no acute process per radiologist Lumbar MRI shows: CONCLUSION: 1. Right paracentral disc extrusion/disc fragment at L4-5 resulting in possible impingement of the right L5 nerve root in the lateral recess. 2. Post surgical findings at L5-S1. Central canal and neural foraminal diameters within normal limits at this level. Call was placed to Dr. Godinez to discuss the patient. Patient was discussed with the on-call mid-level, and patient was sent home prednisone 40 mg daily #10. Patient also given Percocet 5/325 one every 4 hours when necessary pain 20. Patient is to rest, use crutches for ambulation, and follow-up with Dr. Godinez on Tuesday as scheduled. Patient can return to emergency Department with worsening symptoms if necessary. Diagnosis Primary Impression: Herniated nucleus pulposus, L4-5 right Referrals: Joelle Godinez MD 2 days Patient Instructions: General Instructions, Lumbar Disc Herniation (DC) Additional Instructions: Patient was discussed with the on-call mid-level, and patient was sent home prednisone 40 mg daily #10. Patient also given Percocet 5/325 one every 4 hours when necessary pain 20. Patient is to rest, use crutches for ambulation, and follow-up with Dr. Godinez on Tuesday as scheduled. Patient can return to emergency Department with worsening symptoms if necessary. Med/Other Pt SpecificInfo: Prescription(s) given Scripts Oxycodone-Acetaminophen (Percocet) 5-325 mg Tab 1 TAB PO Q4H Y for PAIN, #20 TAB 0 Refills Prov: Harrison Wang MD 04/30/17 Prednisone (Prednisone) 20 Mg Tab 40 MG PO DAILY, #10 TAB 0 Refills Take 40 mg (2 tablets) daily for 5 days Prov: Harrison Wang MD 04/30/17 Disposition: 01 DISCHARGE HOME Condition: Stable Tom Quintero Apr 30, 2017 12:42
[2017-04-30] MEDS ORDERED: SODIUM CHLOR 0.9% 1000 ML INJ 1,000 ML IV SCH (12:46)
[2017-04-30] MEDS ORDERED: DEXAMETHASONE SOD PHOS 4 MG/ML VIAL IV PUSH ONE (13:00)
[2017-04-30] MEDS ORDERED: ONDANSETRON HCL 4 MG/2 ML VIAL IVP ONE (13:00)
[2017-04-30] MEDS ORDERED: MORPHINE SULFATE 2 MG/ML INJ IV PUSH ONE (13:00)
[2017-04-30] MEDS ORDERED: KETOROLAC TROMETHAMINE 30 MG/ML (IVP) VIAL IVP ONE (13:00)
[2017-04-30] MEDS: SODIUM CHLORIDE 0.9% FLUSH 10 ML FLUSH IV FLUSH PRN ×2 (13:08→15:58)
[2017-04-30 13:10] VITALS: BP 115/75; PULSE 78
[2017-04-30 13:32] LABS: BASOPHIL % 0.8 % (0.0-2.0); EOSINOPHIL # 0.2 TH/MM3 (0-0.4); EOSINOPHIL % 3.3 % (0.0-4.0); HEMATOCRIT 44.4 % (39.0-51.0); HEMOGLOBIN 14.7 GM/DL (13.0-17.0); LYMPH % 40.6 % (9.0-44.0); LYMPHOCYTE # 2.6 TH/MM3 (1.0-4.8); MEAN CELL VOLUME 80.8 FL (80.0-100.0); MEAN CORPUSCULAR HEMOGLOBIN 26.7 PG (27.0-34.0); MEAN CORPUSCULAR HGB CONC 33.1 % (32.0-36.0); MEAN PLATELET VOLUME 7.8 FL (7.0-11.0); MONO % 8.2 % (0.0-8.0); MONOCYTE # 0.5 TH/MM3 (0-0.9); NEUT % 47.1 % (16.0-70.0); PLATELET COUNT 307 TH/MM3 (150-450); RED BLOOD COUNT 5.49 MIL/MM3 (4.50-5.90); RED CELL DISTRIBUTION WIDTH 14.2 % (11.6-17.2); WHITE BLOOD COUNT 6.3 TH/MM3 (4.0-11.0)
--- NOTE | 2017-04-30 13:53 | RADRPT ---
EXAM DATE/TIME: 04/30/2017 13:08 [facility] COMPARISON: No previous studies available for comparison. INDICATIONS : Back pain. Cough. MEDICAL HISTORY : None. SURGICAL HISTORY : None. ENCOUNTER: Initial ACUITY: 1 week PAIN SCORE: 5/10 LOCATION: Bilateral chest FINDINGS: Single AP view of the chest. The lungs are clear. Cardiomediastinal silhouette within normal limits. No evidence of pleural effusion or pneumothorax. CONCLUSION: No acute cardiopulmonary disease identified. Jesse Yanez MD on April 30, 2017 at 13:50 Board Certified Radiologist. This report was verified electronically.
[2017-04-30 14:01] LABS: AST (GOT) 20 U/L (15-37); BICARBONATE 26.6 MEQ/L (21.0-32.0); BLOOD UREA NITROGEN 10 MG/DL (7-18); CALCIUM 9.7 MG/DL (8.5-10.1); CHLORIDE 105 MEQ/L (98-107); CREATININE 1.07 MG/DL (0.60-1.30); GLOMERULAR FILTRATION RATE 91 ML/MIN (>89); GLUCOSE,RANDOM 107 MG/DL (74-106); SODIUM (NA) 138 MEQ/L (136-145)
[2017-04-30 14:09] LABS: ALKALINE PHOSPHATASE 110 U/L (45-117); ALT (GPT) 25 U/L (12-78); TOTAL BILIRUBIN ADULT 0.6 MG/DL (0.2-1.0); TOTAL PROTEIN 8.3 GM/DL (6.4-8.2)
--- NOTE | 2017-04-30 15:43 | RADRPT ---
EXAM DATE/TIME: 04/30/2017 14:14 [facility] COMPARISON: No previous studies available for comparison. INDICATIONS : Pain. Fall. CONTRAST: 20 cc Omniscan (gadodiamide) IV MEDICAL HISTORY : None. SURGICAL HISTORY : Discectomy, lumbar. ENCOUNTER: Initial ACUITY: 1 day PAIN SCORE: 9/10 LOCATION: Paraspinal TECHNIQUE: Multiplanar multisequence MRI of the lumbar spine was performed with and without contrast. FINDINGS: The most caudal appearing lumbar vertebra is numbered as L5. VERTEBRAE: Homogeneous signal. Normal alignment. CONUS: Normal level and configuration. POST CONTRAST: No abnormal areas of contrast enhancement are seen. T12-L1: The thecal sac has a normal diameter. No evidence of disc bulge or protrusion. The neural foramina are patent bilaterally. L1-L2: The thecal sac has a normal diameter. No evidence of disc bulge or protrusion. The neural foramina are patent bilaterally. L2-L3: The thecal sac has a normal diameter. No evidence of disc bulge or protrusion. The neural foramina are patent bilaterally. L3-L4: The thecal sac has a normal diameter. No evidence of disc bulge or protrusion. The neural foramina are patent bilaterally. L4-L5: Broad-based disc bulge. There is a rounded nonenhancing disc extrusion or disc fragment in the right lateral recess best seen on the sagittal contrast-enhanced images measuring 5 mm in diameter and resu lting in possible impingement of the right L5 nerve root. Central canal diameter within normal limits . Neural foraminal diameters within normal limits. L5-S1: Postsurgical findings at this level with posterior enhancing soft tissue. Posterior laminectomy defec t. Broad-based disc bulge. No nonenhancing disc fragment identified at this level. Central canal and neural foraminal diameters within normal limits. CONCLUSION: 1. Right paracentral disc extrusion/disc fragment at L4-5 resulting in possible impingement of the ri ght L5 nerve root in the lateral recess. 2. Post surgical findings at L5-S1. Central canal and neural foraminal diameters within normal limits at this level. Jesse Yanez MD on April 30, 2017 at 15:31 Board Certified Radiologist. This report was verified electronically.
[2017-04-30] MEDS ORDERED: HYDROmorphone HCL PF 2 MG/ML VIAL IV PUSH ONE (16:15)
[2017-04-30] MEDS ORDERED: PERC5TAB12 PO (16:48)
[2017-04-30] MEDS ORDERED: PRED20 PO (16:48)
[2017-04-30 17:17] VITALS: BP 115/75
== END 2017-04-30 17:18 | disposition home or self-care (01) ==
LOC: NEPC 12:15
DX: M51.26 Other intervertebral disc displacement, lumbar region (principal); R53.1 Weakness; R20.0 Anesthesia of skin; Z79.899 Other long term (current) drug therapy
CPT/HCPCS: 71045; 72158; 80053; 85025; 85730; 96374; 96375; 99285; A9579; J1100; J1170; J1885; J2270; J2405; J7030

== ENCOUNTER 2017-05-19 10:04 | Day surgery (SDC) | payer OTHER ==
[~2017-05-19] VITALS: Ht 180.3 cm; Wt 121.6 kg
[~2017-05-19 10:04] MED LIST changes: -PRED5TAB PO; -TIZA4CAP3 PO; +TIZA4TAB PO; -TRAM50TA PO
[2017-05-19] MEDS ORDERED: DEXAMETHASONE SOD PHOS 4 MG/ML VIAL IV ONE (12:00)
[2017-05-19] MEDS ORDERED: ONDANSETRON HCL 4 MG/2 ML VIAL IV ONE (12:00)
[2017-05-19] MEDS ORDERED: PHENYLEPH/NS 1000 MCG/10 ML SYR IV ONE (12:00)
[2017-05-19] MEDS ORDERED: ROCURONIUM INJ 50 MG/5 ML SYRINGE IV PUSH ONE (12:00)
[2017-05-19] MEDS ORDERED: ceFAZolin INJ 1,000 MG VIAL IV ONE (12:00)
[2017-05-19] MEDS ORDERED: ePHEDrine/NS 25 MG/5 ML SYRINGE IV ONE (12:00)
[2017-05-19] MEDS ORDERED: PROPOFOL 200 MG/20 ML AMP IV ONE (12:00)
[2017-05-19] MEDS ORDERED: LIDOCAINE HCL 1% PF 5 ML SYRINGE OTHER ONE (12:00)
[2017-05-19] MEDS ORDERED: CHLORHEXIDINE GLUCONATE 2 % 1 PACK (2 CLOTHS) TOPICAL PRN (13:45)
[2017-05-19] MEDS ORDERED: SODIUM CHLORID 0.9% 500 ML IV PRN (13:45)
[2017-05-19] MEDS ORDERED: CHLORHEXIDINE GLUCONATE 4% SOLN 120 ML BTL TOPICAL SCH (13:45)
[2017-05-19] MEDS ORDERED: INSULIN HUMAN REGULAR 1,000 UNITS/10 ML VIAL SQ PRN (13:45)
[2017-05-19] MEDS ORDERED: METOPROLOL TARTRATE 25 MG TAB PO PRN (13:45)
[2017-05-19] MEDS ORDERED: POVIDONE IODINE 5% (ANTISEPSIS KIT) 4 APPLICATIONS EACH NARE PRN (13:45)
[2017-05-19] MEDS ORDERED: ceFAZolin 2 GM PREMIX 50 ML IV SCH (13:45)
[2017-05-19] MEDS ORDERED: LACTATED RINGER'S 1000 ML IV PRN (13:45)
[2017-05-19] MEDS ORDERED: BUPIVACAINE/EPINEPHRINE 0.25% 50 ML VIAL ONE (13:53)
[2017-05-19] MEDS ORDERED: GENTAMICIN SULFATE 80 MG/2 ML VIAL ONE (14:04)
[2017-05-19] MEDS ORDERED: BETAMETHASONE SOD PHOS/ACETATE SUSP 30 MG/5 ML VIAL ONE ×2 (14:12→16:05)
[2017-05-19] MEDS ORDERED: GELATIN 12 MM/7 MM FOAM ONE (14:12)
[2017-05-19] MEDS ORDERED: MIDAZOLAM HCL 2 MG/2 ML VIAL ONE (16:14)
[2017-05-19] MEDS ORDERED: ACETAMINOPHEN 1000 MG/100 ML 100 ML IV ONE (16:27)
--- NOTE | 2017-05-19 16:37 | PD.OP ---
cc: Joelle Godinez MD Operative Report Right L4-L5 disc herniation with extrusion Postoperative Diagnosis: same Procedure: Right L4-L5 hemilaminectomy with discectomy Anesthesia: General Surgeon: Joelle Godinez Rink Rat(s): none Operation and Findings: EBL: 50 cc Complications: None Specimens: None Indications for procedure: Patient is a 41-year-old gentleman who sustained a injury while at work with an annular tear at the L4 5 level and a disc herniation at L5-S1. Approximately 3 months previously, he underwent a right L5 -S1 hemilaminectomy and discectomy for disc herniation with radiculopathy. Postoperatively, he had significant improvement in his right lower extremity radiculopathy and within the last few weeks developed acute onset recurrence of his right sided radiculopathy. An MRI had been performed which demonstrated an L4 5 disc herniation with an extruded disc fragment compressing the traversing L5 right nerve root. Options of management were discussed with the patient. Given he had significant disabling pain, option of intervention in the form of right L4 5 hemilaminectomy with discectomy was discussed. Risks of surgery including but not limited to: Infection, CSF leak, recurrent disc herniation, neurologic injury including possible weakness or paralysis, persistent symptoms , epidural fibrosis, adjacent segment disease, and other unforeseen complications were all discussed with the patient. At this time he did consent to the procedure. Description of procedure: The patient was brought back to the operating room. Gen. anesthesia then ensued. The patient was then placed prone on the operating room table with all bony prominences well-padded. The patient was prepped and draped in standard sterile fashion. A timeout was performed to identify the correct patient, location, and procedure to be performed. Preoperative antibiotics were given prior to incision. The L4-L5 level was identified with fluoroscopy, local anesthetic was used on the skin, subcutaneous tissue and muscle, then a central midline incision was made through the skin and subcutaneous tissue. A small incision was made in the fascia just to the right of the spinous process and dilating tubes placed down to the lamina over the L4-5 disc space on the right side. These were verified to be directly over the L4-5 disc space and the retractors were then placed over these dilators. The lamina and pars were cleared at this level with Bovie and pituitary. A high-speed bur was then used to create a right hemilaminectomy at the L4-5 level. The ligamentum flavum was then elevated with the use of pituitaries and Kerrisons. The traversing L5 nerve root was identified and mobilized medially with the thecal sac. Immediately a small approximate 5 mm piece of disc material which was extruded from the disc space was encountered. This was removed. A nerve root retractor was then placed to expose the disc space at L4-5 and hemostasis was achieved with the epidural vessels. A small annulotomy was then made into the L4 5 disc space. A discectomy was performed with the use of pituitaries. Once the thecal sac and L5 traversing nerve root appeared to be free of compression, the disc space was irrigated to ensure all free pieces of disc material were removed. Hemostasis was achieved with the use of bipolar cautery and hemostatic agents. A small piece of Gelfoam laden with Celestone was then placed over the exposed right L5 nerve root. The fascia was then closed with interrupted Vicryl sutures and the subcutaneous tissue as well. A subcuticular Monocryl suture was then used to close the skin and Steri-Strips then applied. Patient was then placed supine on a stretcher and awoken from general anesthesia without complications. It should be noted the patient remained hemodynamically stable throughout the procedure. Disposition: Plan for patient be discharged from the postop area today. Restrictions were discussed with the patient prior to surgery including: No lifting, pushing or pulling greater than 10 pounds. No sitting for greater than 30 minutes at a time. No bending, twisting, stooping. Joelle Godinez MD May 19, 2017 16:37
[2017-05-19] MEDS ORDERED: OXYC1TAB63 PO (16:41)
[2017-05-19] MEDS ORDERED: KETOROLAC TROMETHAMINE 30 MG/ML (IVP) VIAL IV PUSH ONE (16:45)
[2017-05-19] MEDS ORDERED: Post-op Orders (for Pharmacy) XX ONE (16:45)
[2017-05-19] MEDS ORDERED: oxyCODONE/ACETAMINOPHEN 5 MG/325 MG TAB PO PRN (16:45)
[2017-05-19] MEDS ORDERED: SODIUM CHLORIDE 0.9% FLUSH 10 ML FLUSH IV FLUSH PRN (16:45)
[2017-05-19] MEDS ORDERED: ONDANSETRON HCL 4 MG/2 ML VIAL IV PUSH PRN (16:45)
[2017-05-19] MEDS ORDERED: *morphine SULFATE 4 MG/ML PERIprocedure ONLY ONE ×4 (17:02→17:39)
[2017-05-19] MEDS ORDERED: MORPHINE SULFATE 2 MG/ML INJ IV PUSH PRN (17:15)
--- NOTE | 2017-05-19 17:24 | RADRPT ---
EXAM DATE/TIME: 05/19/2017 14:09 [facility] COMPARISON: SPINE LUMBAR LATERAL ONLY, March 04, 2017, 8:44. INDICATIONS : L4-L5 Henry laminectomy, diskectomy. ORIF. MEDICAL HISTORY : None. SURGICAL HISTORY : None. ENCOUNTER: Initial ACUITY: 1 day PAIN SCORE: Non-responsive. LOCATION: Lower back. FINDINGS: A single lateral view of the lumbar spine was performed. Surgical instrumentation is identified at L4 -5. CONCLUSION: Surgical instrumentation at L4-5. Master Neri MD on May 19, 2017 at 17:21 Board Certified Radiologist. This report was verified electronically.
[2017-05-19] MEDS ORDERED: DO NOT ADM ANY ANTICOAGULANT DRUGS PRN (18:15)
[2017-05-19 18:29] VITALS: BP 144/78; PULSE 81; RESP 14; TEMP 97.6; O2SAT 96
[2017-05-19] MEDS ORDERED: SODIUM CHLORIDE 0.9% FLUSH 10 ML FLUSH IV FLUSH SCH (21:00)
== END 2017-05-19 18:45 | disposition home or self-care (01) ==
LOC: HSDC 10:04
PROVIDERS: ATTEND Orthopaedic Surgery Orthopaedic Surgery of the Spine
DX: M51.26 Other intervertebral disc displacement, lumbar region (principal)
CPT/HCPCS: 00630; 63030; 72020; 76000; J0131; J0690; J0702; J1100; J1580; J1885; J2250; J2270; J2370; J2405; J3010

== ENCOUNTER 2017-05-21 06:26 | Emergency (ER) | payer OTHER ==
[~2017-05-21] VITALS: Ht 180.3 cm; Wt 113.0 kg
[~2017-05-21 06:26] MED LIST changes: +OXYC1TAB63 PO
[2017-05-21 06:31] VITALS: BP 135/70; PULSE 80; RESP 18; O2SAT 97
[2017-05-21] MEDS ORDERED: SODIUM CHLOR 0.9% 1000 ML INJ 1,000 ML IV ONE (07:15)
[2017-05-21] MEDS ORDERED: ONDANSETRON HCL 4 MG/2 ML VIAL IV PUSH ONE (07:15)
[2017-05-21] MEDS ORDERED: MORPHINE SULFATE 4 MG/ML INJ IV PUSH ONE (07:15)
--- NOTE | 2017-05-21 07:15 | PD ---
HPI Chief Complaint: Skin Problem Time Seen by Provider: 07:06 Travel History International Travel<30 days: No Contact w/Intl Traveler<30days: No Traveled to known affect area: No History of Present Illness HPI The patient is a 41 old [place] male who presents emergency department for drainage from a surgical wound. The patient underwent L4-L5 hemilaminectomy with discectomy by Dr. Godinez yesterday for back pain. The patient has Steri-Strips applied and was discharged home. The patient states he has had drainage from the wound which has been a clear reddish color, has soaked 3 shirts, over the course of the night. He does complain of chronic pain , no increase in pain. He denies any fever, chills, or sweats. Symptoms are moderate. There are no current alleviating or exacerbating factors. The patient presents emergency department for evaluation of possible infection with the drainage from the surgical wound. PFSH Past Medical History Cancer: No Cardiovascular Problems: No Diabetes: No Diminished Hearing: No Endocrine: No Genitourinary: Yes (URGENCY) Hepatitis: No Hiatal Hernia: No Hypertension: No Immune Disorder: No Musculoskeletal: Yes (pain down r leg with weakness, BUTTOCK AND RIGHT SCIATICA ) Neurologic: No Psychiatric: No Reproductive: No Respiratory: No Immunizations Current: No Thyroid Disease: No Tetanus Vaccination: < 5 Years Influenza Vaccination: No Past Surgical History Abdominal Surgery: No AICD: No Cardiac Surgery: No Ear Surgery: No Endocrine Surgery: No Eye Surgery: No Genitourinary Surgery: No Gynecologic Surgery: No Joint Replacement: No Oral Surgery: No Pacemaker: No Thoracic Surgery: No Social History Alcohol Use: No Tobacco Use: No Substance Use: No Allergies-Medications (Allergen,Severity, Reaction): Coded Allergies: No Known Allergies (Unverified Adverse Reaction, Unknown, 05/19/17) Reported Meds & Prescriptions Reported Meds & Active Scripts Active Oxycodone-Acetaminophen 5-325 (Oxycodone HCl/Acetaminophen) 5 Mg-325 Mg Tablet 1 Tab PO Q4H PRN Reported Gabapentin 300 Mg Cap 300 Mg PO TID Review of Systems Except as stated in HPI: all other systems reviewed are Neg General / Constitutional: No: Fever, Chills Gastrointestinal: No: Nausea, Vomiting Musculoskeletal: Positive: Pain Skin: Positive Other (clear to red drainage from surgical wound) Physical Exam Narrative GENERAL: Awake, alert, pleasant 41-year-old male who appears his stated age and is in no acute respiratory distress. SKIN: Focused skin assessment warm/dry. HEAD: Atraumatic. Normocephalic. EYES: No injection or drainage. CARDIOVASCULAR: Regular rate and rhythm. No murmur appreciated. RESPIRATORY: No accessory muscle use. Clear to auscultation. Breath sounds equal bilaterally. GASTROINTESTINAL: Abdomen soft, non-tender, nondistended. Back: Midline lumbar incision with Steri-Strips overlying it. Clear red drainage noted on the Steri-Strips. MUSCULOSKELETAL: No obvious deformities. No clubbing. No cyanosis. No edema. NEUROLOGICAL: Awake and alert. No obvious cranial nerve deficits. Motor grossly within normal limits. Normal speech. PSYCHIATRIC: Appropriate mood and affect; insight and judgment normal. Data Data Last Documented VS Vital Signs Date Time Temp Pulse Resp B/P (MAP) Pulse Ox O2 Delivery O2 Flow Rate FiO2 05/21/17 08:03 14 05/21/17 06:34 85 05/21/17 06:31 135/70 (91) 97 Orders Orders Complete Blood Count With Diff (05/21/17 07:10) Basic Metabolic Panel (Bmp) (05/21/17 07:10) Lactic Acid (05/21/17 07:10) Blood Culture (05/21/17 07:10) Morphine Inj (Morphine Inj) (05/21/17 07:15) Ondansetron Inj (Zofran Inj) (05/21/17 07:15) Sodium Chlor 0.9% 1000 Ml Inj (Ns 1000 M (05/21/17 07:15) Mri L Spine W/O Contrast (05/21/17 ) Labs Laboratory Tests Test 05/21/17 07:20 05/21/17 07:25 White Blood Count 10.1 TH/MM3 Red Blood Count 4.80 MIL/MM3 Hemoglobin 13.0 GM/DL Hematocrit 39.0 % Mean Corpuscular Volume 81.2 FL Mean Corpuscular Hemoglobin 27.1 PG Mean Corpuscular Hemoglobin Concent 33.4 % Red Cell Distribution Width 14.2 % Platelet Count 248 TH/MM3 Mean Platelet Volume 7.5 FL Neutrophils (%) (Auto) 59.0 % Lymphocytes (%) (Auto) 27.4 % Monocytes (%) (Auto) 11.3 % Eosinophils (%) (Auto) 1.4 % Basophils (%) (Auto) 0.9 % Neutrophils # (Auto) 6.0 TH/MM3 Lymphocytes # (Auto) 2.8 TH/MM3 Monocytes # (Auto) 1.1 TH/MM3 Eosinophils # (Auto) 0.1 TH/MM3 Basophils # (Auto) 0.1 TH/MM3 CBC Comment DIFF FINAL Differential Comment Blood Urea Nitrogen 13 MG/DL Creatinine 0.99 MG/DL Random Glucose 100 MG/DL Calcium Level 8.5 MG/DL Sodium Level 141 MEQ/L Potassium Level 3.9 MEQ/L Chloride Level 110 MEQ/L Carbon Dioxide Level 25.7 MEQ/L Anion Gap 5 MEQ/L Estimat Glomerular Filtration Rate 100 ML/MIN Lactic Acid Level 1.0 mmol/L [facility] Medical Decision Making Medical Screen Exam Complete: Yes Emergency Medical Condition: Yes Medical Record Reviewed: Yes Interpretation(s) Laboratory Tests Test 05/21/17 07:20 05/21/17 07:25 White Blood Count 10.1 TH/MM3 Red Blood Count 4.80 MIL/MM3 Hemoglobin 13.0 GM/DL Hematocrit 39.0 % Mean Corpuscular Volume 81.2 FL Mean Corpuscular Hemoglobin 27.1 PG Mean Corpuscular Hemoglobin Concent 33.4 % Red Cell Distribution Width 14.2 % Platelet Count 248 TH/MM3 Mean Platelet Volume 7.5 FL Neutrophils (%) (Auto) 59.0 % Lymphocytes (%) (Auto) 27.4 % Monocytes (%) (Auto) 11.3 % Eosinophils (%) (Auto) 1.4 % Basophils (%) (Auto) 0.9 % Neutrophils # (Auto) 6.0 TH/MM3 Lymphocytes # (Auto) 2.8 TH/MM3 Monocytes # (Auto) 1.1 TH/MM3 Eosinophils # (Auto) 0.1 TH/MM3 Basophils # (Auto) 0.1 TH/MM3 CBC Comment DIFF FINAL Differential Comment Blood Urea Nitrogen 13 MG/DL Creatinine 0.99 MG/DL Random Glucose 100 MG/DL Calcium Level 8.5 MG/DL Sodium Level 141 MEQ/L Potassium Level 3.9 MEQ/L Chloride Level 110 MEQ/L Carbon Dioxide Level 25.7 MEQ/L Anion Gap 5 MEQ/L Estimat Glomerular Filtration Rate 100 ML/MIN Lactic Acid Level 1.0 mmol/L Last Impressions Lumbar Spine MRI 05/21/17 0000 Signed Impressions: Service Date/Time: Sunday, May 21, 2017 10:17 - CONCLUSION: 1. The posterior changes on the right side at the level of L4-L5 characteristic of a partial laminectomy. There is some fluid that tracks along the soft tissues adjacent to the L4 spinous process. However, the appearance suggests most likely postsurgical changes. Cannot exclude a spinal leak. If this requires further evaluation, a nuclear medicine spinal leak study could be performed. Chilango Severino MD Differential Diagnosis differential diagnosis includes postoperative bleeding, postoperative infection , serosanguineous drainage, abscess, cellulitis, normal postoperative course. Narrative Course IV was established, labs are drawn and sent, the patient was placed on cardiac telemetry monitoring and continuous pulse oximetry monitoring. The patient was provided morphine, Zofran, and IV fluids for back pain. CBC and lactic acid blood culture were sent to lab. The patient's white count is unremarkable. Lactic acid is unremarkable. The patient is postoperative from yesterday for L4 -L5 hemilaminectomy with discectomy. Therefore, the on-call orthopedist for Dr. Godinez was paged at 8:37 AM. I discussed the patient with Dr. Hernandez who recommends an MRI to evaluate for possible spinal leak. Therefore, MRI without contrast was ordered. I discussed the findings of MRI with Dr. Hernandez who spoke with Dr. Godinez. After discussion with the orthopedist, he recommends placing a pressure dressing over the affected area, I'll place the patient on antibiotics, following up in the office this week. He is advised to return if symptoms worsen or progress. Diagnosis Primary Impression: Postoperative complication Qualified Codes: L76.82 - Other postprocedural complications of skin and subcutaneous tissue Patient Instructions: General Instructions Additional Instructions: Medication as directed. Follow-up with your orthopedist. Please provide the patient a copy of his labs and MRI results at discharge. Return if symptoms worsen or progress. Med/Other Pt SpecificInfo: Prescription(s) given Scripts Cephalexin (Keflex) 500 Mg Cap 500 MG PO Q6H for Infection for 7 Days, #28 CAP 0 Refills Prov: Harrison Wang MD 05/21/17 Disposition: 01 DISCHARGE HOME Condition: Stable Harrison Wang MD May 21, 2017 07:15
[2017-05-21 07:53] LABS: BASOPHIL # 0.1 TH/MM3 (0-0.2); BASOPHIL % 0.9 % (0.0-2.0); EOSINOPHIL # 0.1 TH/MM3 (0-0.4); EOSINOPHIL % 1.4 % (0.0-4.0); LYMPH % 27.4 % (9.0-44.0); LYMPHOCYTE # 2.8 TH/MM3 (1.0-4.8); MEAN CELL VOLUME 81.2 FL (80.0-100.0); MEAN CORPUSCULAR HEMOGLOBIN 27.1 PG (27.0-34.0); MEAN CORPUSCULAR HGB CONC 33.4 % (32.0-36.0); MEAN PLATELET VOLUME 7.5 FL (7.0-11.0); MONO % 11.3 % (0.0-8.0); MONOCYTE # 1.1 TH/MM3 (0-0.9); PLATELET COUNT 248 TH/MM3 (150-450); RED CELL DISTRIBUTION WIDTH 14.2 % (11.6-17.2); WHITE BLOOD COUNT 10.1 TH/MM3 (4.0-11.0)
[2017-05-21 08:03] VITALS: RESP 14
[2017-05-21 08:24] LABS: BICARBONATE 25.7 MEQ/L (21.0-32.0); CALCIUM 8.5 MG/DL (8.5-10.1); CREATININE 0.99 MG/DL (0.60-1.30)
--- NOTE | 2017-05-21 11:04 | RADRPT ---
EXAM DATE/TIME: 05/21/2017 10:17 [facility] COMPARISON: No previous studies available for comparison. INDICATIONS : Pain. Pain post op 2 days.--quest spinal fluid leak MEDICAL HISTORY : None. SURGICAL HISTORY : Discectomy, lumbar. ENCOUNTER: Initial ACUITY: 1 day PAIN SCORE: 5/10 LOCATION: Paraspinal TECHNIQUE: Multiplanar multisequence MRI of the lumbar spine was performed without contrast. FINDINGS: The most caudal appearing lumbar vertebra is numbered as L5. VERTEBRAE: Homogeneous signal. Normal alignment. Isn't disc dehydration L4-5 and L5-S1. There is disc space jose alejandro rowing at L5-S1. Postsurgical changes are noted posteriorly on the right side at L4-5. CONUS: Normal level and configuration. T12-L1: The thecal sac has a normal diameter. No evidence of disc bulge or protrusion. The neural foramina are patent bilaterally. L1-L2: The thecal sac has a normal diameter. No evidence of disc bulge or protrusion. The neural foramina are patent bilaterally. L2-L3: The thecal sac has a normal diameter. No evidence of disc bulge or protrusion. The neural foramina are patent bilaterally. L3-L4: The thecal sac has a normal diameter. No evidence of disc bulge or protrusion. The neural foramina are patent bilaterally. L4-L5: There is mild broad-based bulging. Neural foramina are patent bilaterally. There are postsurgical jarrod nges on the right side characteristic of a partial laminectomy. There is some fluid in the soft tissu es that tracks adjacent to the posterior spinous process of L4. L5-S1: The thecal sac has a normal diameter. No evidence of disc bulge or protrusion. The neural foramina are patent bilaterally. CONCLUSION: 1. The posterior changes on the right side at the level of L4-L5 characteristic of a partial laminect judith. There is some fluid that tracks along the soft tissues adjacent to the L4 spinous process. Howev er, the appearance suggests most likely postsurgical changes. Cannot exclude a spinal leak. If this r equires further evaluation, a nuclear medicine spinal leak study could be performed. Chilango Severino MD on May 21, 2017 at 10:54 Board Certified Radiologist. This report was verified electronically.
[2017-05-21] MEDS ORDERED: CEPH-460 PO (11:29)
[2017-05-21] MEDS ORDERED: CEPHALEXIN MONOHYDRATE 500 MG CAP PO ONE (11:30)
== END 2017-05-21 11:52 | disposition home or self-care (01) ==
LOC: NEPE 06:26
DX: L76.82 Other postprocedural complications of skin and subcutaneous tissue (principal); M54.9 Dorsalgia, unspecified; G89.29 Other chronic pain
CPT/HCPCS: 72148; 80048; 83605; 85025; 87040; 96361; 96374; 96375; 99284; J2270; J2405; J7030

== ENCOUNTER 2017-05-25 23:24 | Emergency (ER) | payer OTHER ==
[~2017-05-25] VITALS: Ht 180.3 cm; Wt 113.6 kg
[~2017-05-25 23:24] MED LIST changes: +CEPH-460 PO; -CYCL5TAB PO; -HYDR-3516 PO; -TIZA4TAB PO
[2017-05-25] MEDS ORDERED: GADODIAMIDE PF 287 MG/ML 5 ML VIAL (for RAD MRI) IVCONTRAST ONE (23:25)
[2017-05-25 23:35] VITALS: BP 122/88; PULSE 97; TEMP 98.2; O2SAT 96
[2017-05-26] MEDS ORDERED: SODIUM CHLOR 0.9% 1000 ML INJ 1,000 ML IV ONE (02:34)
[2017-05-26] MEDS ORDERED: SODIUM CHLORIDE 0.9% FLUSH 10 ML FLUSH IVF PRN (02:45)
[2017-05-26] MEDS ORDERED: MORPHINE SULFATE 8 MG/ML INJ IV PUSH ONE (03:00)
[2017-05-26] MEDS ORDERED: cefTRIAXone INJ 2,000 MG in SODIUM CHLORIDE 0.9% INJ 100 ML IV ONE (03:00)
[2017-05-26] MEDS ORDERED: VANCOMYCIN INJ 1,500 MG in SODIUM CHLORID 0.9% 500 ML INJ 500 ML IV ONE (03:00)
[2017-05-26 03:59] LABS: AUTOMATED NEUTROPHIL # 4.4 TH/MM3 (1.8-7.7); BASOPHIL # 0.1 TH/MM3 (0-0.2); BASOPHIL % 0.8 % (0.0-2.0); EOSINOPHIL # 0.3 TH/MM3 (0-0.4); HEMATOCRIT 44.8 % (39.0-51.0); HEMOGLOBIN 15.2 GM/DL (13.0-17.0); LYMPH % 35.3 % (9.0-44.0); MEAN CELL VOLUME 80.4 FL (80.0-100.0); MEAN CORPUSCULAR HEMOGLOBIN 27.2 PG (27.0-34.0); MEAN CORPUSCULAR HGB CONC 33.8 % (32.0-36.0); MEAN PLATELET VOLUME 7.3 FL (7.0-11.0); MONO % 8.1 % (0.0-8.0); MONOCYTE # 0.7 TH/MM3 (0-0.9); NEUT % 51.8 % (16.0-70.0); PLATELET COUNT 310 TH/MM3 (150-450); RED BLOOD COUNT 5.57 MIL/MM3 (4.50-5.90); RED CELL DISTRIBUTION WIDTH 13.8 % (11.6-17.2); WHITE BLOOD COUNT 8.4 TH/MM3 (4.0-11.0)
[2017-05-26 04:23] LABS: BICARBONATE 27.1 MEQ/L (21.0-32.0); CALCIUM 9.2 MG/DL (8.5-10.1); CREATININE 1.19 MG/DL (0.60-1.30)
--- NOTE | 2017-05-26 04:30 | PD ---
HPI Chief Complaint: Pain: Acute or Chronic Time Seen by Provider: 02:34 Travel History International Travel<30 days: No Contact w/Intl Traveler<30days: No Traveled to known affect area: No History of Present Illness HPI 41-year-old male arrives complaining of discharge from the back. One week prior he had a laminectomy performed by Dr Godinez. He notes discharge on the surgical dressing. He also has chronic pain in the back which is for him constant and moderately severe at least. He denies falls. He said no incontinence of bowel or bladder. No numbness or tingling in the perineal/ perianal distribution. PFSH Past Medical History Cancer: No Cardiovascular Problems: No Diabetes: No Diminished Hearing: No Endocrine: No Genitourinary: Yes Hepatitis: No Hiatal Hernia: No Hypertension: No Immune Disorder: No Musculoskeletal: Yes (pain down r leg with weakness, BUTTOCK AND RIGHT SCIATICA ) Neurologic: No Psychiatric: No Reproductive: No Respiratory: No Immunizations Current: No Thyroid Disease: No Tetanus Vaccination: < 5 Years Past Surgical History Abdominal Surgery: No AICD: No Cardiac Surgery: No Ear Surgery: No Endocrine Surgery: No Eye Surgery: No Genitourinary Surgery: No Gynecologic Surgery: No Joint Replacement: No Oral Surgery: No Pacemaker: No Thoracic Surgery: No Social History Alcohol Use: No Tobacco Use: No Substance Use: No Allergies-Medications (Allergen,Severity, Reaction): Coded Allergies: bee venom protein (honey bee) (Verified Allergy, Unknown, 05/25/17) No Known Allergies (Unverified Adverse Reaction, Unknown, 05/19/17) Reported Meds & Prescriptions Reported Meds & Active Scripts Active Keflex (Cephalexin) 500 Mg Cap 500 Mg PO Q6H 7 Days Oxycodone-Acetaminophen 5-325 (Oxycodone HCl/Acetaminophen) 5 Mg-325 Mg Tablet 1 Tab PO Q4H PRN Reported Gabapentin 300 Mg Cap 300 Mg PO TID Review of Systems Except as stated in HPI: all other systems reviewed are Neg General / Constitutional: No: Fever Physical Exam Narrative GENERAL: 41-year-old male pleasant well-nourished well-developed mild distress secondary to pain Vital Signs Date Time Temp Pulse Resp B/P (MAP) Pulse Ox O2 Delivery O2 Flow Rate FiO2 05/25/17 23:35 98.2 97 122/88 (99) 96 SKIN: Warm and dry. HEAD: Atraumatic. Normocephalic. EYES: Pupils equal and round. No scleral icterus. No injection or drainage. ENT: No nasal bleeding or discharge. Mucous membranes pink and moist. NECK: Trachea midline. No JVD. CARDIOVASCULAR: Regular rate and rhythm. RESPIRATORY: No accessory muscle use. Clear to auscultation. Breath sounds equal bilaterally. GASTROINTESTINAL: Abdomen soft, non-tender, nondistended. Hepatic and splenic margins not palpable. MUSCULOSKELETAL: In the midline lower lumbar spine there is a 5 cm surgical incision which is well approximated with trace serous issues along the inferior margin. There is no fluctuance. Minimal warmth and erythema adjacent to the surgical incision is noted. NEUROLOGICAL: Awake and alert. No obvious cranial nerve deficits. Motor grossly within normal limits. Five out of 5 muscle strength in the arms and legs. Normal speech. PSYCHIATRIC: Appropriate mood and affect; insight and judgment normal. Data Data Last Documented VS Vital Signs Date Time Temp Pulse Resp B/P (MAP) Pulse Ox O2 Delivery O2 Flow Rate FiO2 05/25/17 23:35 98.2 97 122/88 (99) 96 RR approx 18 on my exam Orders Orders Sodium Chloride 0.9% Flush (Ns Flush) (05/26/17 02:45) Sodium Chlor 0.9% 1000 Ml Inj (Ns 1000 M (05/26/17 02:34) Basic Metabolic Panel (Bmp) (05/26/17 02:53) Complete Blood Count With Diff (05/26/17 02:53) Wound Culture And Gram Stain (05/26/17 02:53) Iv Access Insert/Monitor (05/26/17 02:53) Wound Care (05/26/17 02:53) Mri L Spine W&W/O Contrast (05/26/17 ) Ceftriaxone Inj (Rocephin Inj) (05/26/17 03:00) Vancomycin Inj (Vancomycin Inj) (05/26/17 03:00) Morphine Inj (Morphine Inj) (05/26/17 03:00) Blood Culture (05/26/17 02:55) Potassium, Serum (K) (05/26/17 04:30) Labs Laboratory Tests Test 05/26/17 03:40 05/26/17 05:21 White Blood Count 8.4 TH/MM3 Red Blood Count 5.57 MIL/MM3 Hemoglobin 15.2 GM/DL Hematocrit 44.8 % Mean Corpuscular Volume 80.4 FL Mean Corpuscular Hemoglobin 27.2 PG Mean Corpuscular Hemoglobin Concent 33.8 % Red Cell Distribution Width 13.8 % Platelet Count 310 TH/MM3 Mean Platelet Volume 7.3 FL Neutrophils (%) (Auto) 51.8 % Lymphocytes (%) (Auto) 35.3 % Monocytes (%) (Auto) 8.1 % Eosinophils (%) (Auto) 4.0 % Basophils (%) (Auto) 0.8 % Neutrophils # (Auto) 4.4 TH/MM3 Lymphocytes # (Auto) 3.0 TH/MM3 Monocytes # (Auto) 0.7 TH/MM3 Eosinophils # (Auto) 0.3 TH/MM3 Basophils # (Auto) 0.1 TH/MM3 CBC Comment DIFF FINAL Differential Comment Blood Urea Nitrogen 18 MG/DL Creatinine 1.19 MG/DL Random Glucose 95 MG/DL Calcium Level 9.2 MG/DL Sodium Level 137 MEQ/L Potassium Level 5.8 MEQ/L 4.6 MEQ/L Chloride Level 106 MEQ/L Carbon Dioxide Level 27.1 MEQ/L Anion Gap 4 MEQ/L Estimat Glomerular Filtration Rate 81 ML/MIN MDM Medical Decision Making Medical Screen Exam Complete: Yes Emergency Medical Condition: Yes Medical Record Reviewed: Yes Differential Diagnosis Abscess, epidural abscess, seroma, cellulitis Narrative Course CBC & BMP Diagram 05/26/17 03:40 Calcium Level 9.2 05/26/17 05:21 MR L spine ordered and pending at time of sign out, 7am. d/w oncoming provider to follow up and disposition patient appropriately. Daron Hood MD May 26, 2017 04:30
--- NOTE | 2017-05-26 09:41 | RADRPT ---
EXAM DATE/TIME: 05/26/2017 08:18 [facility] COMPARISON: MRI LUMBAR SPINE W/O CONTRAST, May 21, 2017, 10:17. MRI LUMBAR SPINE W & W/O CONTRAST, April 30, 2017, 14:14. INDICATIONS : Increased pain post laminectomy. Drainage from surgical wound. CONTRAST: 22 cc Omniscan (gadodiamide) IV MEDICAL HISTORY : None. SURGICAL HISTORY : Laminectomy x2 ENCOUNTER: Subsequent ACUITY: 1 week PAIN SCORE: 4/10 LOCATION: lower back TECHNIQUE: Multiplanar multisequence MRI of the lumbar spine was performed with and without contrast. FINDINGS: When compared to the prior examinations the paraspinal fluid collection at L4-L5 has increased in siz e. This fluid collection is somewhat linear in nature tracking from the laminectomy defect on the rig ht at L4-L5 posteriorly to the dorsal soft tissues. This fluid collection tracks to the skin and may in fact drain through the surgical incision. The fluid collection measures 9.8 cm in length and 1.6 c m in maximum width. No enhancement of the surrounding soft tissues or enhancing capsule observed. The central canal is patent throughout. In particular, the central canal is patent at L4-L5. Discussion of the other levels of the lumbar spine have been performed in detail on multiple previous occasions. CONCLUSION: Enlarging paraspinal fluid collection extending from the right L4-5 laminectomy defect to the overlyi ng skin surface differential diagnostic considerations would include a postoperative seroma versus CS F leak. Hilario Young Jr., MD on May 26, 2017 at 9:17 Board Certified Radiologist. This report was verified electronically.
--- NOTE | 2017-05-26 11:10 | PD ---
Data Data Last Documented VS Vital Signs Date Time Temp Pulse Resp B/P (MAP) Pulse Ox O2 Delivery O2 Flow Rate FiO2 05/25/17 23:35 98.2 97 122/88 (99) 96 Orders Orders Sodium Chloride 0.9% Flush (Ns Flush) (05/26/17 02:45) Sodium Chlor 0.9% 1000 Ml Inj (Ns 1000 M (05/26/17 02:34) Basic Metabolic Panel (Bmp) (05/26/17 02:53) Complete Blood Count With Diff (05/26/17 02:53) Wound Culture And Gram Stain (05/26/17 02:53) Iv Access Insert/Monitor (05/26/17 02:53) Wound Care (05/26/17 02:53) Mri L Spine W&W/O Contrast (05/26/17 ) Ceftriaxone Inj (Rocephin Inj) (05/26/17 03:00) Vancomycin Inj (Vancomycin Inj) (05/26/17 03:00) Morphine Inj (Morphine Inj) (05/26/17 03:00) Blood Culture (05/26/17 02:55) Potassium, Serum (K) (05/26/17 04:30) Gadodiamide Pf Inj (Omniscan Pf Inj) (05/25/17 23:25) Labs Laboratory Tests Test 05/26/17 03:40 05/26/17 05:21 White Blood Count 8.4 TH/MM3 Red Blood Count 5.57 MIL/MM3 Hemoglobin 15.2 GM/DL Hematocrit 44.8 % Mean Corpuscular Volume 80.4 FL Mean Corpuscular Hemoglobin 27.2 PG Mean Corpuscular Hemoglobin Concent 33.8 % Red Cell Distribution Width 13.8 % Platelet Count 310 TH/MM3 Mean Platelet Volume 7.3 FL Neutrophils (%) (Auto) 51.8 % Lymphocytes (%) (Auto) 35.3 % Monocytes (%) (Auto) 8.1 % Eosinophils (%) (Auto) 4.0 % Basophils (%) (Auto) 0.8 % Neutrophils # (Auto) 4.4 TH/MM3 Lymphocytes # (Auto) 3.0 TH/MM3 Monocytes # (Auto) 0.7 TH/MM3 Eosinophils # (Auto) 0.3 TH/MM3 Basophils # (Auto) 0.1 TH/MM3 CBC Comment DIFF FINAL Differential Comment Blood Urea Nitrogen 18 MG/DL Creatinine 1.19 MG/DL Random Glucose 95 MG/DL Calcium Level 9.2 MG/DL Sodium Level 137 MEQ/L Potassium Level 5.8 MEQ/L 4.6 MEQ/L Chloride Level 106 MEQ/L Carbon Dioxide Level 27.1 MEQ/L Anion Gap 4 MEQ/L Estimat Glomerular Filtration Rate 81 ML/MIN MDM Supervised Visit with KARLA: No Narrative Course This case was checked out to me by Dr. Hood at 7 AM. He had ordered an MRI which is now completed and read. I reevaluated the patient and discussed the results with him. This patient has been having bilateral leg weakness that predates his surgery and is no different today. He is not having any fever but complained of wound drainage. There is no sign of wound infection or dehiscence. He has normal vitals and normal labs. There is a scant clear serous type drainage from the incision I reviewed this in detail with the surgeon Dr. Godinez. She recommends we discharge him from the ER and he come to the office so she can examine him. He had an appointment yesterday that he skipped stating that he did not have any transportation.. Sounds like he has been noncompliant with follow-up. Diagnosis Primary Impression: Wound drainage Additional Impression: Bilateral leg weakness Additional Instruction: The patient was advised to follow up with their physician and return if they worsen. Med/Other Pt SpecificInfo: Other Disposition: 01 DISCHARGE HOME Condition: Stable Bernabe Burgess MD May 26, 2017 11:10
== END 2017-05-26 11:44 | disposition home or self-care (01) ==
LOC: NEPC 23:24
DX: M54.9 Dorsalgia, unspecified (principal)
CPT/HCPCS: 72158; 80048; 84132; 85025; 86403; 87040; 87070; 87077; 87186; 96365; 96367; 96375; 99285; A9579; J0696; J2270; J3370; J7040

== ENCOUNTER 2017-06-01 23:04 | Emergency (ER) | payer OTHER ==
[~2017-06-01] VITALS: Ht 180.3 cm; Wt 75.0 kg
[2017-06-01 23:17] VITALS: BP 135/80; PULSE 88; RESP 20; TEMP 98.4; O2SAT 99
[2017-06-01] MEDS ORDERED: LEVO750T3 PO (23:30)
[2017-06-02] MEDS ORDERED: oxyCODONE/ACETAMINOPHEN 5 MG/325 MG TAB PO ONE (00:15)
--- NOTE | 2017-06-02 01:08 | PD ---
HPI Chief Complaint: Back/ Neck Pain or Injury Time Seen by Provider: 23:37 Travel History International Travel<30 days: No Contact w/Intl Traveler<30days: No Traveled to known affect area: No History of Present Illness HPI Patient is a 41-year-old male who had a laminectomy in March from orthopedic surgeon Lester here at [place] after the surgery apparently the patient developed a seroma and returned to the ER and had a repeat surgery on May 19 By Lester. Then patient returned for antibiotics apparently his skin culture was possibly positive for MRSA and was put on cephalexin and Levaquin. He is still on those antibiotics at this time he is coming back in having severe pain right leg weakness and was told by the orthopedic surgeon that he did not need the antibiotics and he should return to work. In the ER is complaining of severe pain lower back with weakness radiating down the right leg.. denies leaking or bleeding from the surgical site.. Original surgery was a laminectomy for disc herniation for L5 .. I reviewed his MRI on the which did show a seroma like collection in the posterior area L5. Pt is on hydrocodone for pain and levaquin and keflex to cover skin infection . PFSH Past Medical History Cancer: No Cardiovascular Problems: No Diabetes: No Diminished Hearing: No Endocrine: No Genitourinary: Yes Hepatitis: No Hiatal Hernia: No Hypertension: No Immune Disorder: No Musculoskeletal: Yes (pain down r leg with weakness, BUTTOCK AND RIGHT SCIATICA ) Neurologic: No Psychiatric: No Reproductive: No Respiratory: No Immunizations Current: No Thyroid Disease: No Tetanus Vaccination: < 5 Years Influenza Vaccination: No Past Surgical History Abdominal Surgery: No AICD: No Cardiac Surgery: No Ear Surgery: No Endocrine Surgery: No Eye Surgery: No Genitourinary Surgery: No Gynecologic Surgery: No Joint Replacement: No Oral Surgery: No Pacemaker: No Thoracic Surgery: No Social History Alcohol Use: No Tobacco Use: No Substance Use: No Allergies-Medications (Allergen,Severity, Reaction): Coded Allergies: bee venom protein (honey bee) (Verified Allergy, Unknown, 06/01/17) No Known Allergies (Unverified Adverse Reaction, Unknown, 06/01/17) Reported Meds & Prescriptions Reported Meds & Active Scripts Active Keflex (Cephalexin) 500 Mg Cap 500 Mg PO Q6H 7 Days Oxycodone-Acetaminophen 5-325 (Oxycodone HCl/Acetaminophen) 5 Mg-325 Mg Tablet 1 Tab PO Q4H PRN Reported Levofloxacin 750 Mg Tablet 750 Mg PO DAILY Gabapentin 300 Mg Cap 300 Mg PO TID Review of Systems Except as stated in HPI: all other systems reviewed are Neg Physical Exam Narrative GENERAL: Patient having severe pain in his lower back mostly on the right radiation down the right leg. Patient holding leg and back HEAD: Atraumatic. Normocephalic. EYES: Pupils equal and round. No scleral icterus. No injection or drainage. ENT: No nasal bleeding or discharge. Mucous membranes pink and moist. NECK: Trachea midline. No JVD. CARDIOVASCULAR: Regular rate and rhythm. RESPIRATORY: No accessory muscle use. Clear to auscultation. Breath sounds equal bilaterally. GASTROINTESTINAL: Abdomen soft, non-tender, nondistended. Hepatic and splenic margins not palpable. MUSCULOSKELETAL: Extremities patient has mild weakness with his right leg Back has midline lumbar scar healing well no signs of infection.. left side of scar is flat,, The right side of scar is slightly elevated no dishesion of the wound no signs of infection NEUROLOGICAL: Awake and alert. No obvious cranial nerve deficits. Motor grossly within normal limits. Five out of 5 muscle strength in the arms and legs. Normal speech. PSYCHIATRIC: Appropriate mood and affect; insight and judgment normal. Data Data Last Documented VS Vital Signs Date Time Temp Pulse Resp B/P (MAP) Pulse Ox O2 Delivery O2 Flow Rate FiO2 06/02/17 01:28 76 16 118/67 (84) 98 Room Air 06/01/17 23:17 98.4 Orders Orders Complete Blood Count With Diff (06/02/17 00:13) Comprehensive Metabolic Panel (06/02/17 00:13) Oxycodone-Acetamin 5-325 Mg (Percocet (06/02/17 00:15) Mri L Spine W/O Contrast (06/02/17 ) Labs Laboratory Tests Test 06/02/17 00:30 White Blood Count 6.2 TH/MM3 Red Blood Count 4.80 MIL/MM3 Hemoglobin 12.8 GM/DL Hematocrit 38.4 % Mean Corpuscular Volume 80.0 FL Mean Corpuscular Hemoglobin 26.7 PG Mean Corpuscular Hemoglobin Concent 33.4 % Red Cell Distribution Width 13.9 % Platelet Count 300 TH/MM3 Mean Platelet Volume 7.1 FL Neutrophils (%) (Auto) 43.0 % Lymphocytes (%) (Auto) 38.8 % Monocytes (%) (Auto) 11.9 % Eosinophils (%) (Auto) 5.4 % Basophils (%) (Auto) 0.9 % Neutrophils # (Auto) 2.6 TH/MM3 Lymphocytes # (Auto) 2.4 TH/MM3 Monocytes # (Auto) 0.7 TH/MM3 Eosinophils # (Auto) 0.3 TH/MM3 Basophils # (Auto) 0.1 TH/MM3 CBC Comment DIFF FINAL Differential Comment Blood Urea Nitrogen 12 MG/DL Creatinine 1.19 MG/DL Random Glucose 101 MG/DL Total Protein 7.3 GM/DL Albumin 3.3 GM/DL Calcium Level 8.8 MG/DL Alkaline Phosphatase 90 U/L Aspartate Amino Transf (AST/SGOT) 27 U/L Alanine Aminotransferase (ALT/SGPT) 23 U/L Total Bilirubin 0.4 MG/DL Sodium Level 141 MEQ/L Potassium Level 4.1 MEQ/L Chloride Level 108 MEQ/L Carbon Dioxide Level 29.6 MEQ/L Anion Gap 3 MEQ/L Estimat Glomerular Filtration Rate 81 ML/MIN [facility] Medical Decision Making Medical Screen Exam Complete: Yes Emergency Medical Condition: Yes Differential Diagnosis seroma , csf leak, epidural abscess, vs radicular pain vs post op pain , cuada equine , Narrative Course MRI ordered non ememrgent for AM and Pending signed out to oncoming attending Diagnosis Primary Impression: Back pain with right-sided sciatica Julián Braun MD Jun 02, 2017 01:08
[2017-06-02 01:12] LABS: AUTOMATED NEUTROPHIL # 2.6 TH/MM3 (1.8-7.7); BASOPHIL # 0.1 TH/MM3 (0-0.2); BASOPHIL % 0.9 % (0.0-2.0); EOSINOPHIL # 0.3 TH/MM3 (0-0.4); EOSINOPHIL % 5.4 % (0.0-4.0); HEMATOCRIT 38.4 % (39.0-51.0); HEMOGLOBIN 12.8 GM/DL (13.0-17.0); LYMPH % 38.8 % (9.0-44.0); LYMPHOCYTE # 2.4 TH/MM3 (1.0-4.8); MEAN CORPUSCULAR HEMOGLOBIN 26.7 PG (27.0-34.0); MEAN CORPUSCULAR HGB CONC 33.4 % (32.0-36.0); MEAN PLATELET VOLUME 7.1 FL (7.0-11.0); MONO % 11.9 % (0.0-8.0); MONOCYTE # 0.7 TH/MM3 (0-0.9); PLATELET COUNT 300 TH/MM3 (150-450); RED CELL DISTRIBUTION WIDTH 13.9 % (11.6-17.2); WHITE BLOOD COUNT 6.2 TH/MM3 (4.0-11.0)
[2017-06-02 01:26] LABS: ALBUMIN 3.3 GM/DL (3.4-5.0); ALT (GPT) 23 U/L (12-78); AST (GOT) 27 U/L (15-37); BICARBONATE 29.6 MEQ/L (21.0-32.0); BLOOD UREA NITROGEN 12 MG/DL (7-18); CALCIUM 8.8 MG/DL (8.5-10.1); CHLORIDE 108 MEQ/L (98-107); CREATININE 1.19 MG/DL (0.60-1.30); GLOMERULAR FILTRATION RATE 81 ML/MIN (>89); GLUCOSE,RANDOM 101 MG/DL (74-106); SODIUM (NA) 141 MEQ/L (136-145)
[2017-06-02 01:28] VITALS: BP 118/67; PULSE 76; RESP 16; O2SAT 98
[2017-06-02 01:28] LABS: ALKALINE PHOSPHATASE 90 U/L (45-117); TOTAL BILIRUBIN ADULT 0.4 MG/DL (0.2-1.0); TOTAL PROTEIN 7.3 GM/DL (6.4-8.2)
[2017-06-02] MEDS ORDERED: GADODIAMIDE PF 287 MG/ML 5 ML VIAL (for RAD MRI) IVCONTRAST ONE (08:34)
--- NOTE | 2017-06-02 08:54 | RADRPT ---
EXAM DATE/TIME: 06/02/2017 07:45 [place] COMPARISON: MRI LUMBAR SPINE W & W/O CONTRAST, May 26, 2017, 8:18. INDICATIONS : Severe pain lower back with weakness radiating down the right leg. Post lumbar surgery x2. CONTRAST: 22 cc Omniscan (gadodiamide) IV MEDICAL HISTORY : None. Seroma SURGICAL HISTORY : Lumbar x2. ENCOUNTER: Subsequent ACUITY: 2 weeks PAIN SCORE: 4/10 LOCATION: Right leg TECHNIQUE: Multiplanar multisequence MRI of the lumbar spine was performed with and without contrast. FINDINGS: The right-sided paraspinal fluid collection at L4-L5 is again seen in tracks from the laminectomy def ect posteriorly. This does not appear to have significantly changed from previous study. The fluid co llection adjacent to the laminectomy defect/spinous process appears unchanged. The fluid more posteri jaret has slightly decreased in prominence when compared to study. There is some granulation tissue in the right lateral recess at L4-5. No significant canal stenosis at L4-5. There is expected enhanceme nt adjacent to the fluid collection/thrombus and adjacent soft tissues. The broad-based protrusion mo re eccentric to the right at L5-S1 does abut the S1 nerve root in the lateral recess, greater on the right. There is some enhancement and laminectomy defect on the right but not significantly changed. CONCLUSION: 1. The paraspinal fluid collection on the right at L4-L5 is essentially unchanged adjacent to the vazquez inectomy defect and more posteriorly has slightly decreased in prominence when compared to previous s tudy. 2. There is some granulation tissue in the right lateral recess at L4-5 and L5-S1 but no significant canal stenosis. 3. Broad-based protrusion more eccentric to the right at L5-S1 does abut the S1 nerve roots in latera l recesses greater on the right. Jaime Kitchen MD on June 02, 2017 at 8:36 Board Certified Radiologist. This report was verified electronically.
[2017-06-02] MEDS ORDERED: BACT800T5 PO (08:59)
--- NOTE | 2017-06-02 09:01 | PD ---
Data Data Last Documented VS Vital Signs Date Time Temp Pulse Resp B/P (MAP) Pulse Ox O2 Delivery O2 Flow Rate FiO2 06/02/17 01:28 76 16 118/67 (84) 98 Room Air 06/01/17 23:17 98.4 Orders Orders Complete Blood Count With Diff (06/02/17 00:13) Comprehensive Metabolic Panel (06/02/17 00:13) Oxycodone-Acetamin 5-325 Mg (Percocet (06/02/17 00:15) Mri L Spine W&W/O Contrast (06/02/17 ) Gadodiamide Pf Inj (Omniscan Pf Inj) (06/02/17 08:34) Ed Discharge Order (06/02/17 09:01) Labs Laboratory Tests Test 06/02/17 00:30 White Blood Count 6.2 TH/MM3 Red Blood Count 4.80 MIL/MM3 Hemoglobin 12.8 GM/DL Hematocrit 38.4 % Mean Corpuscular Volume 80.0 FL Mean Corpuscular Hemoglobin 26.7 PG Mean Corpuscular Hemoglobin Concent 33.4 % Red Cell Distribution Width 13.9 % Platelet Count 300 TH/MM3 Mean Platelet Volume 7.1 FL Neutrophils (%) (Auto) 43.0 % Lymphocytes (%) (Auto) 38.8 % Monocytes (%) (Auto) 11.9 % Eosinophils (%) (Auto) 5.4 % Basophils (%) (Auto) 0.9 % Neutrophils # (Auto) 2.6 TH/MM3 Lymphocytes # (Auto) 2.4 TH/MM3 Monocytes # (Auto) 0.7 TH/MM3 Eosinophils # (Auto) 0.3 TH/MM3 Basophils # (Auto) 0.1 TH/MM3 CBC Comment DIFF FINAL Differential Comment Blood Urea Nitrogen 12 MG/DL Creatinine 1.19 MG/DL Random Glucose 101 MG/DL Total Protein 7.3 GM/DL Albumin 3.3 GM/DL Calcium Level 8.8 MG/DL Alkaline Phosphatase 90 U/L Aspartate Amino Transf (AST/SGOT) 27 U/L Alanine Aminotransferase (ALT/SGPT) 23 U/L Total Bilirubin 0.4 MG/DL Sodium Level 141 MEQ/L Potassium Level 4.1 MEQ/L Chloride Level 108 MEQ/L Carbon Dioxide Level 29.6 MEQ/L Anion Gap 3 MEQ/L Estimat Glomerular Filtration Rate 81 ML/MIN [facility] Medical Record Reviewed: Yes Supervised Visit with KARLA: No Narrative Course The patient was seen by the outgoing provider. Please refer to his documentation. I spoke with orthopedic surgery Dr. Godinez about this patient. He has been in and out of the office multiple times. An outpatient wound culture was negative. The patient is concerned he might have MRSA. Has been compliant with Keflex and Levaquin. Evidently he told the on-call orthopedic surgeon last night that if he can get a work note he would come to the ER. It is not unreasonable to provide patient with a work note here. Wound culture here grew MRSA and Pseudomonas. Former is sensitive to Bactrim and will prescribe that to replace Keflex. Levaquin was effective for the Pseudomonas. All questions answered at the bedside. The patient is ambulatory. Minimal fluid collection following the surgery is not unexpected especially given habitus. Diagnosis Primary Impression: Back pain with right-sided sciatica Referrals: Primary Care Physician 2 days Med/Other Pt SpecificInfo: Prescription(s) given Scripts Sulfamethoxazole-Trimethoprim (Bactrim DS) 800-160 Mg Tab 1 TAB PO BID for Infection, #14 TAB 0 Refills Prov: Daron Hood MD 06/02/17 Disposition: DISCHARGE HOME Condition: Stable Daron Hood MD Jun 02, 2017 09:01
[2017-06-02 09:20] VITALS: BP 120/72; PULSE 76; RESP 18; O2SAT 98
== END 2017-06-02 09:47 | disposition home or self-care (01) ==
LOC: NEPE 23:04
DX: M54.9 Dorsalgia, unspecified (principal); M54.31 Sciatica, right side; Z91.030 Bee allergy status
CPT/HCPCS: 72158; 80053; 85025; 99284; A9579

== ENCOUNTER 2017-06-13 08:47 | Emergency (ER) | payer OTHER ==
[~2017-06-13] VITALS: Ht 180.3 cm; Wt 115.0 kg
[~2017-06-13 08:47] MED LIST changes: +BACT800T5 PO; +LEVO750T3 PO
[2017-06-13 08:48] VITALS: BP 131/67; PULSE 84; RESP 17; TEMP 97.7; O2SAT 98
--- NOTE | 2017-06-13 11:03 | PD ---
HPI . Low back pain with right-sided sciatica Chief Complaint: Back/ Neck Pain or Injury Time Seen by Provider: 10:30 Travel History International Travel<30 days: No Contact w/Intl Traveler<30days: No Traveled to known affect area: No History of Present Illness HPI This patient presents for low back pain with right-sided sciatica which has been an ongoing issue for him since February 2017. He is followed by Dr. Braeden aviles in the clinic. He has had 2 previous surgeries, the most recent being on . He has been seen here at least 3 times since his surgery and has had 3 follow-up MRIs done. The most recent MRI was done on 06/02/17. The patient presents complaining with the chronic pain that his main issue seems to be his return to work status. I have explained to the patient that we really do not do the return to work status in the emergency department. That needs to come from his Workmen's Comp. He reports no new symptoms. He has not been running fevers. He has had no further problems with his wound although he did have a wound infection previously. He has not had bowel or bladder incontinence. He ambulates with crutches. His pain is exacerbated by movement. He does not have saddle anesthesia. History Past Medical Histgory Hx Cancer: No Social History Alcohol Use: No Tobacco Use: No Allergies-Medications (Allergen,Severity, Reaction): Coded Allergies: bee venom protein (honey bee) (Verified Allergy, Unknown, 06/13/17) Reported Meds & Prescriptions Reported Meds & Active Scripts Active Bactrim DS (Sulfamethoxazole-Trimethoprim) 800-160 Mg Tab 1 Tab PO BID Keflex (Cephalexin) 500 Mg Cap 500 Mg PO Q6H 7 Days Oxycodone-Acetaminophen 5-325 (Oxycodone HCl/Acetaminophen) 5 Mg-325 Mg Tablet 1 Tab PO Q4H PRN Reported Levofloxacin 750 Mg Tablet 750 Mg PO DAILY Gabapentin 300 Mg Cap 300 Mg PO TID Review of Systems Except as stated in HPI: all other systems reviewed are Neg Physical Exam Narrative GENERAL: Awake and alert. SKIN: Warm and dry. His surgical wound is well-healed with no drainage, redness , warmth. HEAD: Normocephalic/atraumatic. EYES: Pupils are equal. Extraocular movements are intact. Delete NECK: Normal range of motion. Bili RESPIRATORY: Nonlabored respirations. Bili MUSCULOSKELETAL: Pain with movement of his low back. Tenderness to palpation in the low back. NEUROLOGICAL: Nonfocal. PSYCHIATRIC: Appropriate mood and affect. Data Data Last Documented VS Vital Signs Date Time Temp Pulse Resp B/P (MAP) Pulse Ox O2 Delivery O2 Flow Rate FiO2 06/13/17 08:48 97.7 84 17 131/67 (88) 98 MDM Medical Screen Exam Complete: Yes Emergency Medical Condition: No Narrative Course I have reviewed this patient's medical records at length. This is his eighth visit here since February 07, 2017 for this back injury. He has had a recent MRI done on 06/02/17 which does show disc protrusion to the right at L5/S1. However, the symptoms have been present since February and are clearly not an emergent medical condition. He has had no changes in his symptoms in the recent past. His more appropriate course of action is to see Dr. Godinez who did his 2 operations and who is following him as an outpatient. A medical screening exam was performed: At the time of evaluation the presenting medical condition was determined not to be of an emergent nature. The patient was given the option of receiving additional care, but declined. Patient was given options for additional community resources from which to obtain care. The Patient Has Been advised to seek medical attention for their presenting complaint. The patient has been advised to return to the ER at any time if an emergent condition develops. Primary Impression: Encounter for medical screening examination Condition: Stable Luna Hall MD Jun 13, 2017 11:03
== END 2017-06-13 11:35 | disposition left against medical advice (07) ==
LOC: NEPD 08:47
DX: M54.41 Lumbago with sciatica, right side (principal); G89.29 Other chronic pain; Z79.899 Other long term (current) drug therapy
CPT/HCPCS: 99281

== ENCOUNTER 2017-06-13 11:32 | Emergency (ER) | payer OTHER | END 2017-06-13 12:03 | disposition left against medical advice (07) | LOC: NED 11:32 | DX: Z09 Encounter for follow-up examination after completed treatment for conditions other than malignant neoplasm (principal); Z53.21 Procedure and treatment not carried out due to patient leaving prior to being seen by health care provider | CPT/HCPCS: 99281 ==